=== PATIENT | female | born 1950 | race Caucasian/White ===

== ENCOUNTER 2017-08-20 15:54 | Emergency (ER) | payer MEDICARE, OTHER, SELFPAY ==
[2017-08-20 15:56] VITALS: BP 156/85; PULSE 93; RESP 18; TEMP 36.1; O2SAT 98; BMI 36.3
--- NOTE | 2017-08-20 16:55 | ED.DCSUM_ITS ---
- ER Visit Summary Date of Service: 08/20/17 Chief Complaint: Epistaxis History of Present Illness: The patient is a 66 F who presents with epistaxis. She does have a history of prior similar symptoms. She has been taking Aleve due to wrist and rib pain after a fall. She is not on any full anticoagulation. She does have a history of prior epistaxis requiring packing. 2 hours ago she began to have bleeding from the right side of her nose which she was unable to control. She is otherwise without any complaints. Physical Examination: Afebrile vitals are stable Moist mucous membranes Heart regular Lungs clear There is mild oozing in the right nare I do not see a clear focal source amenable to cauterization Test Results: Not indicated Emergency Department Course and Treatment: FloSeal was placed in the right nare and bleeding controlled. Patient was referred to Dr. Montanez for outpatient follow-up and the patient was discharged. Treatment Plan: [] Disposition: Discharge Impression: Epistaxis This note was generated with [employer] dictation software. It may contain incorrect words, spelling, and punctuation that were not noted in review of the chart prior to signing ED Disposition - Plan for ED Patient: Chief Complaint: Nosebleed Referrals: Curtis Avila MD [Primary Care Provider] -
== END 2017-08-20 17:29 | disposition home or self-care (01) ==
LOC: ED 16:37
PROVIDERS: Emergency Provider Emergency Medicine; Family Provider Family Medicine; PCP Family Medicine
DX: R04.0 Epistaxis (principal); E11.9 Type 2 diabetes mellitus without complications; I10 Essential (primary) hypertension; Z79.84 Long term (current) use of oral hypoglycemic drugs; Z79.899 Other long term (current) drug therapy
CPT/HCPCS: 30901; 99282

== ENCOUNTER 2017-08-21 06:50 | Emergency (ER) | payer MEDICARE, OTHER, SELFPAY ==
[2017-08-21 06:51] VITALS: BP 147/68; PULSE 75; RESP 17; TEMP 36.1; O2SAT 98; BMI 36.8
--- NOTE | 2017-08-21 07:21 | ED.VISSUMM ---
- ER Visit Summary Date of Service: 08/21/17 Chief Complaint: Nosebleed History of Present Illness: The patient is a 66 F presenting for evaluation secondary to nosebleed. Patient states that she was seen yesterday and had a gel put within her nose. She states that this stopped bleeding. Patient reports that she then had a sudden onset of bleeding again this morning about 5 in the morning. It is coming from her right nostril. Patient states that she has had some issues in the past with bleeding and did require cautery multiple multiple years ago of the left side. She is not on any sort of anticoagulants. She is not on oxygen. Review of systems otherwise negative. Physical Examination: Physical exam is unremarkable except for ENT exam. ENT exam shows some dried blood in the posterior oropharynx. There is evidence of friable tissue in the right sided nasal septum without any evidence of active bleeding. Test Results: None indicated Emergency Department Course and Treatment: Patient presented for evaluation secondary to epistaxis. Patient had only mild bleeding on presentation, but Afrin soaked gauze was placed in the patient's right nostril. This was then removed, and the nose was observed under a nasal speculum. There is friable tissue noted over the patient's nasal septum. Cautery was performed using silver nitrate. An anterior nasal packing was used, and was placed in the right nostril. Patient will be observed in the emergency department to ensure hemostasis, and will follow up with ENT Dr. Montanez as an outpatient. Disposition: Discharge Impression: 1. Right-sided epistaxis 2. Anterior nasal packing by ED physician 3. Chemical cautery of epistaxis by ED physician This note was generated with [employer] dictation software. It may contain incorrect words, spelling, and punctuation that were not noted in review of the chart prior to signing ED Disposition - Plan for ED Patient: Disposition: Home or Assisted Living Chief Complaint: Nosebleed Diagnosis: Epistaxis, recurrent Instructions: Nosebleed Prescriptions: Cephalexin [Keflex] 500 mg PO BID #10 cap Referrals: Dragan Montanez MD [STAFF PHYSICIAN] - 2 Days
[2017-08-21 08:04] VITALS: PULSE 69; RESP 17; O2SAT 96
== END 2017-08-21 08:05 | disposition home or self-care (01) ==
PROVIDERS: Emergency Provider Emergency Medicine; Family Provider Family Medicine; PCP Family Medicine
DX: R04.0 Epistaxis (principal); E11.9 Type 2 diabetes mellitus without complications; I10 Essential (primary) hypertension; Z79.84 Long term (current) use of oral hypoglycemic drugs; Z79.899 Other long term (current) drug therapy
CPT/HCPCS: 30901; 99283; A4216

== ENCOUNTER → 2017-08-22 12:22 | Outpatient (CLI) | payer MEDICARE, OTHER, SELFPAY ==
--- NOTE | 2017-08-22 12:28 | RAD_ITS ---
STUDY: X-RAY - RIGHT WRIST REASON FOR EXAM: Female, 66 years old. Fell 2 weeks ago TECHNIQUE: 3 view(s) of the wrist were obtained. COMPARISON: None. FINDINGS: Normal visualized distal radius and ulna. Normal radiocarpal articulation. Normal distal radioulnar articulation. Normal carpal bones. Normal carpal articulations. Normal carpometacarpal articulation of the thumb. Normal second through fifth carpometacarpal articulations. There is an indeterminate lucency at the base of the first metatarsal only visualized on the lateral image. The soft tissue structures are unremarkable. RAD/Wrist min 3 Views IMPRESSION: Indeterminate lucency at the base of the first metatarsal that is likely artifactual in nature, recommend additional dedicated images for further evaluation for cannot entirely exclude an underlying fracture. Electronically Signed: Roberta Levy MD at 12:51 EDT Tel , Service support ,
--- NOTE | 2017-08-22 12:28 | RAD_ITS ---
STUDY: X-RAY - RIGHT RADIUS AND ULNA REASON FOR EXAM: Female, 66 years old. Fell 2 weeks ago. TECHNIQUE: 2 view(s) of the forearm. COMPARISON: None. FINDINGS: There is no demonstrated soft tissue swelling. Normal visualized radius. Normal visualized ulna. RAD/Forearm 2 Views IMPRESSION: No acute osseous injury. Electronically Signed: Roberta Levy MD at 12:48 EDT Tel , Service support ,
--- NOTE | 2017-08-22 12:28 | RAD_ITS ---
STUDY: X-RAY - BILATERAL RIBS WITH CHEST REASON FOR EXAM: Female, 66 years old. Fall 2 weeks ago. Left-sided rib pain. TECHNIQUE - RIBS: 4 view(s) of the ribs. TECHNIQUE - CHEST: PA COMPARISON: None. FINDINGS - RIBS : Normal visualized ribs without a demonstrated fracture. FINDINGS - CHEST: The lungs are clear and expanded. There is no demonstrated pleural abnormality. Normal size heart. Normal mediastinum and florence. Normal visualized pulmonary arteries. Normal visualized aortic arch and descending thoracic aorta. Normal visualized thoracic spine. Normal visualized ribs, clavicles, and shoulders. There is no demonstrated abnormality of the visualized soft tissue structures of the upper abdomen. RAD/Ribs Bilat 3V No CXR IMPRESSION: RIBS: Normal x-ray examination of the bilateral ribs. CHEST: No acute cardiopulmonary process. Electronically Signed: Roberta Levy MD at 12:53 EDT Tel , Service support ,
== END ==
PROVIDERS: Family Provider Family Medicine; PCP Family Medicine; Visit Provider Family Medicine
DX: R07.81 Pleurodynia (principal); M25.531 Pain in right wrist
CPT/HCPCS: 71110; 73090; 73110

== ENCOUNTER → 2017-08-23 14:17 | Outpatient (CLI) | payer MEDICARE, OTHER, SELFPAY ==
--- NOTE | 2017-08-23 14:50 | RAD_ITS ---
STUDY: X-RAY - RIGHT HAND REASON FOR EXAM: Right hand pain after a fall. TECHNIQUE: 3 view(s) of the hand. COMPARISON: Right wrist radiographs 08/22/2017. FINDINGS: Normal radiocarpal articulation. Normal distal radioulnar joint. Normal visualized carpal bones. Normal carpal articulations Normal carpometacarpal articulation of the thumb. Normal second through fifth carpometacarpal joints. Normal metacarpi. Normal metacarpophalangeal joint of the thumb. Normal interphalangeal joint of the thumb. Normal proximal and distal phalanges of the thumb. Normal metacarpophalangeal joints of the second through fifth fingers. Normal proximal and distal interphalangeal joints of the second through fifth fingers. Normal phalanges of the second through fifth fingers. The soft tissue structures are unremarkable. RAD/Hand Min 3 Views IMPRESSION: Unremarkable x-ray examination of the right hand without demonstrated fracture. Electronically Signed: Erick Mead MD at 15:27 EDT Tel , Service support ,
== END ==
PROVIDERS: Family Provider Family Medicine; PCP Family Medicine; Visit Provider Family Medicine
DX: M25.531 Pain in right wrist (principal); R07.81 Pleurodynia
CPT/HCPCS: 73130

== ENCOUNTER → 2017-10-14 11:40 | Outpatient (CLI) | payer MEDICARE, OTHER, SELFPAY ==
[2017-10-14 13:59] LABS: AST(SGOT) 17 U/L (15-37); Alanine Aminotransfer ALT/SGPT 28 U/L (13-56); Albumin, Serum 3.9 g/dL (3.2-5.0); Alkaline Phosphatase 138 U/L (45-117); Anion Gap 11 (5-15); BUN 21 mg/dL (7-18); BUN/Creat Ratio 23.8 RATIO (10-20); Bilirubin, Direct 0.12 mg/dL (0.00-0.30); Calcium,Total 9.8 mg/dL (8.5-10.1); Chloride 104 mmol/L (98-107); Cholesterol 177 mg/dL (200); Creatinine, Serum 0.88 mg/dL (0.55-1.02); EST Glomerular Filtration Rate 68 mL/min (>60); Est Glom Filt Rate - Afr Amer 82 mL/min (>60); Globulin 4.3 g/dL (2.2-4.2); Glucose 151 mg/dL (74-106); High Density Lipoprotein 39 mg/dL; Potassium 4.2 mmol/L (3.5-5.1); Protein, Total 8.2 g/dL (6.4-8.2); Sodium Level 141 mmol/L (136-145); Triglycerides 217 mg/dL; Very Low Density Lipoprotein 43 mg/dL (5-40)
[2017-10-14 14:03] LABS: Hemoglobin A1c 7.2 % (4.2-6.3)
[2017-10-14 14:05] LABS: Vitamin D,25 Hydroxy 41.6 ng/mL (29.95-100.01)
[2017-10-14 14:12] LABS: Microalbumin,Random Urine 5.6 mg/L (NO RANGE EST.); Microalbumin:Creatinine Ratio 12.7 mg/g CRE (<30 mg/g CRE)
== END ==
PROVIDERS: Family Provider Family Medicine; PCP Family Medicine; Visit Provider Family Medicine
DX: E11.9 Type 2 diabetes mellitus without complications (principal); E55.9 Vitamin D deficiency, unspecified; Z79.4 Long term (current) use of insulin
CPT/HCPCS: 36415; 80048; 80061; 80076; 82043; 82306; 82570; 83036

== ENCOUNTER → 2018-04-21 10:57 | Outpatient (CLI) | payer MEDICARE, OTHER, SELFPAY ==
[2018-04-21 13:25] LABS: Anion Gap 11 (5-15); BUN 16 mg/dL (7-18); BUN/Creat Ratio 18.7 RATIO (10-20); Calcium,Total 9.3 mg/dL (8.5-10.1); Chloride 107 mmol/L (98-107); Cholesterol 150 mg/dL (200); Creatinine, Serum 0.86 mg/dL (0.55-1.02); EST Glomerular Filtration Rate 70 mL/min (>60); Est Glom Filt Rate - Afr Amer 85 mL/min (>60); Glucose 193 mg/dL (74-106); High Density Lipoprotein 38 mg/dL; Potassium 4.2 mmol/L (3.5-5.1); Sodium Level 141 mmol/L (136-145); Triglycerides 201 mg/dL; Very Low Density Lipoprotein 40 mg/dL (5-40)
== END ==
PROVIDERS: Family Provider Family Medicine; PCP Family Medicine; Visit Provider Family Medicine
DX: E11.9 Type 2 diabetes mellitus without complications (principal)
CPT/HCPCS: 36415; 80048; 80061

== ENCOUNTER → 2018-06-27 | Outpatient (CLI) | payer MEDICARE, OTHER, SELFPAY ==
--- NOTE | 2018-06-27 12:11 | RAD_ITS ---
STUDY: X-RAY - UNILATERAL RIBS ( LEFT ) WITH CHEST REASON FOR EXAM: Female, 67 years old. Recent fall. Left upper quadrant pain. Left rib pain. TECHNIQUE - RIBS: 4 view(s) of the ribs. TECHNIQUE - CHEST: Single PA view of the chest. COMPARISON: Bilateral RIBS, August 22, 2017. FINDINGS - RIBS: Normal visualized ribs without a demonstrated fracture. FINDINGS - CHEST: The lungs are clear and expanded. There is no demonstrated pleural abnormality. Normal size heart. Normal mediastinum and florence. Normal visualized pulmonary arteries. There is mild tortuosity of the thoracic aorta. There are diffuse degenerative changes of the visualized thoracic spine. There is degenerative osteoarthritis of the bilateral shoulders. There is no demonstrated abnormality of the visualized soft tissue structures of the upper abdomen. RAD/Ribs Uni Min 3V w/PA Chest IMPRESSION: RIBS: Normal x-ray examination of the ribs. CHEST: No acute cardiopulmonary disease. Electronically Signed: Niles Flanagan DO at 20:51 EDT Tel [phone], Service support ,
== END | disposition home or self-care (01) ==
LOC: MTRAD 12:08
PROVIDERS: Family Provider Family Medicine; PCP Family Medicine; Referring Provider Family Medicine; Visit Provider Family Medicine
DX: R10.12 Left upper quadrant pain (principal)
CPT/HCPCS: 71101

== ENCOUNTER → 2018-10-16 09:57 | Outpatient (CLI) | payer MEDICARE, OTHER, SELFPAY ==
[2018-10-16 13:00] LABS: Hemoglobin A1c 7.8 % (4.2-6.3)
[2018-10-16 13:01] LABS: Vitamin D,25 Hydroxy 34.3 ng/mL (29.95-100.01)
[2018-10-16 13:06] LABS: Anion Gap 14 (5-15); BUN 17 mg/dL (7-18); BUN/Creat Ratio 17.1 RATIO (10-20); Calcium,Total 9.4 mg/dL (8.5-10.1); Chloride 105 mmol/L (98-107); Cholesterol 160 mg/dL (200); EST Glomerular Filtration Rate 59 mL/min (>60); Est Glom Filt Rate - Afr Amer 71 mL/min (>60); Glucose 182 mg/dL (74-106); High Density Lipoprotein 37 mg/dL; Potassium 4.3 mmol/L (3.5-5.1); Sodium Level 139 mmol/L (136-145); Triglycerides 235 mg/dL; Very Low Density Lipoprotein 47 mg/dL (5-40)
[2018-10-16 13:16] LABS: Microalbumin,Random Urine 11.2 mg/L (NO RANGE EST.); Microalbumin:Creatinine Ratio 22.1 mg/g CRE (<30 mg/g CRE)
== END ==
PROVIDERS: Family Provider Family Medicine; PCP Family Medicine; Referring Provider Family Medicine; Visit Provider Family Medicine
DX: E11.9 Type 2 diabetes mellitus without complications (principal); E55.9 Vitamin D deficiency, unspecified; Z79.4 Long term (current) use of insulin
CPT/HCPCS: 36415; 80048; 80061; 82043; 82306; 82570; 83036

== ENCOUNTER → 2018-11-18 12:10 | Outpatient (CLI) | payer MEDICARE, OTHER, SELFPAY ==
--- NOTE | 2018-11-18 12:19 | BD_ITS ---
STUDY: DUAL ENERGY X-RAY ABSORPTIOMETRY / DXA REASON FOR EXAM: Female, 68 years old. The patient is postmenopausal. Loss of height. TECHNIQUE: Bone Mineral Density (BMD) measurements of lumbar spine and bilateral hips were obtained. COMPARISON: Comparison is made with prior study dated August 26, 2014. FINDINGS: Lumbar Spine (L1-L4): g/cm2 (0.978) / T-score (-1.7) / Z-score (-0.1) Findings are suggestive of osteopenia with a moderate fracture risk. Increased thoracic kyphosis. Left Femur Total: g/cm2 (0.863) / T-score (-1.1) / Z-score (0.2) Left Femoral Neck: g/cm2 (0.683) / T-score (-2.6) / Z-score (-1.0) Right Femur Total: g/cm2 (0.73) / T-score (-1.8) / Z-score (-0.4) Right Femoral Neck: g/cm2 (0.717) / T-score (-2.3) / Z-score (-0.7) The T-Scores on the most recent prior examination were: Lumbar Spine (L1-L4): There has been worsening of bone density since the previous examination. Left Femur Total: which represents a worsening of 4.1%. Right Femur Total: which represents a worsening of 6.1%. BD/Dexa Bone Density Study IMPRESSION: The patient is considered osteoporotic as outlined below according to World Luke Organization (WHO) criteria with a high fracture risk. There has been worsening of bone density since the previous examination. Reference Information: The T-score is the number of standard deviations above or below the standard which is normal for young adults at their peak bone mineral density. The World Health Organization (WHO) interprets the T-scores as follows: Above -1 Normal bone density Between -1 and -2.5 Osteopenia Equal to / or below -2.5 Osteoporosis As a practical clinical guideline, osteopenia may be graded as follows: Mild -1 through -1.5 Moderate -1.6 through -2.0 Severe -2.1 through -2.4 The Z-score is the number of standard deviations above or below age-matched controls. A Z-score of less than -1.5 would be considered abnormal. References: 1. NIH Osteoporosis and Related Bone Diseases http://www.osteo.org 2. International Society for Clinical Densitometry http://www.iscd.org 3. National Osteoporosis Foundation http://www.nof.org Electronically Signed: Isaac Mcintyre, at 13:40 EDT , Service support ,
--- NOTE | 2018-11-18 12:28 | BI_ITS ---
MAMMOGRAPHY - BILATERAL SCREENING REASON FOR EXAM: Female, 68 years old. Routine annual screening examination. PERTINENT HISTORY: Non-contributory. TECHNIQUE: Digital bilateral breast chelsey (3D mammographic acquisition) in the CC and MLO projections. 2-D mediolateral oblique (MLO) and craniocaudad (CC) views of both breasts were obtained. CAD: Full Field Digital Mammography with Computer Added Detection was performed. COMPARISON: Comparison is made with prior study dated August 28, 2016 and August 26, 2014. FINDINGS: Breast Composition: The breasts are almost entirely fatty. There are no dominant masses or suspicious calcifications. Stable small bilateral benign appearing axillary lymph nodes. No other significant abnormalities are identified. There has been no significant change since the prior study. BI/SCREEN MAMM (CAD) W/CHELSEY BILAT IMPRESSION: Stable bilateral screening mammogram. Yearly follow-up mammogram recommended. (A) ASSESSMENT CATEGORY: BIRADS Category 2: Benign. A letter regarding these results will be sent to the patient by the facility within 30 days. Approximately 10% of breast cancers are not detected by mammography. A normal mammogram should not delay biopsy of a clinically suspicious abnormality. [id number] Electronically Signed: Isaac Mcintyre, at 15:17 EDT , Service support ,
== END ==
PROVIDERS: Family Provider Family Medicine; PCP Family Medicine; Referring Provider Family Medicine; Visit Provider Family Medicine
DX: Z12.31 Encounter for screening mammogram for malignant neoplasm of breast (principal); M81.0 Age-related osteoporosis without current pathological fracture; Z78.0 Asymptomatic menopausal state
CPT/HCPCS: 77063; 77067; 77080

== ENCOUNTER → 2019-10-15 10:02 | Outpatient (CLI) | payer MEDICARE, OTHER, SELFPAY ==
[2019-10-15 13:13] LABS: Anion Gap 9 (5-15); BUN 19 mg/dL (7-18); BUN/Creat Ratio 20.8 RATIO (10-20); Calcium,Total 9.5 mg/dL (8.5-10.1); Chloride 106 mmol/L (98-107); Cholesterol 171 mg/dL (200); Creatinine, Serum 0.92 mg/dL (0.55-1.02); EST Glomerular Filtration Rate 65 mL/min (>60); Est Glom Filt Rate - Afr Amer 78 mL/min (>60); Glucose 180 mg/dL (74-106); High Density Lipoprotein 35 mg/dL; Potassium 4.4 mmol/L (3.5-5.1); Sodium Level 138 mmol/L (136-145); Triglycerides 167 mg/dL; Very Low Density Lipoprotein 33 mg/dL (5-40)
== END ==
PROVIDERS: PCP Family Medicine; Referring Provider Family Medicine; Visit Provider Family Medicine
DX: E11.9 Type 2 diabetes mellitus without complications (principal); M81.0 Age-related osteoporosis without current pathological fracture
CPT/HCPCS: 36415; 80048; 80061; 82306

== ENCOUNTER 2020-01-03 23:31 | Emergency (ER) | payer MEDICARE, OTHER, SELFPAY ==
[2020-01-03 23:31] VITALS: BP 155/87; RESP 16; TEMP 36.2; BMI 37.6
[2020-01-04 00:14] VITALS: O2SAT 95
--- NOTE | 2020-01-04 00:24 | ED.DCSUM_ITS ---
- ER Visit Summary Date of Service: 01/04/20 Chief Complaint: Epistaxis History of Present Illness: The patient is a 69 F who presents with epistaxis that began tonight. Patient states she can feel pressure in her left maxillary sinus over the last 4 days which is typical for her prior to developing a nose bleed. Patient describes as a pressure. Patient states the bleeding is mainly coming from the left nares. Patient states nothing makes it better or worse. Patient states she has had similar episodes in the past. Patient states she prefers to follow-up with Dr. Rebollar. Physical Examination: Vital signs are stable. Patient is afebrile. Patient is in no acute distress. Oral mucosa is pink and moist. There is bloody drainage in the oropharynx. Nasal mucosa is pink and moist. There is bleeding from the left nares. Neck is supple. Trachea is midline. There is no JVD. Heart was regular rate and rhythm. Lungs are clear and equal bilaterally. Abdomen is soft nontender. Cranial nerves II through XII are intact. There are no focal motor or sensory deficits. Test Results: CBC, basic metabolic profile, PT with INR and PTT were obtained were all within normal limits. Emergency Department Course and Treatment: 4% lidocaine and Afrin was mixed and cotton balls were soaked with this. These were placed in the nares. Bleeding improved with this. I attempted to place a 5.5 cm anterior rapid Rhino however I was only able to pass this part way in. A small Merocel sponge was then applied to the left anterior nares. Patient was feeling better after this. There is no further episodes of bleeding noted. Patient was instructed to maintain this until she can follow-up with Dr. Melchor. Patient understood and was agreeable with the plan. All questions were answered. Disposition: Discharge home Impression: 1. Epistaxis This note was generated with [employer] dictation software. It may contain incorrect words, spelling, and punctuation that were not noted in review of the chart prior to signing ED Disposition - Plan for ED Patient: Disposition: Home or Assisted Living Diagnosis: Epistaxis Instructions: Nosebleed Referrals: Curtis Avila MD [Primary Care Provider] - 5-7 Days Agustin Rebollar MD [STAFF PHYSICIAN] - 3-5 Days
[2020-01-04 00:47] LABS: Absolute Lymphocyte Count 2.89 X10^3/uL (0.83-4.51); Absolute Neutrophil Count 6.4 X10^3/uL (2.0-7.7); Basophil# 0.08 X10^3/uL; Basophil% 0.8 % (0-1); Eosinophil# 0.09 X10^3/uL; Eosinophils% 0.9 % (0-5); Hematocrit 39.7 % (37-47); Hemoglobin 12.4 g/dL (12.0-15.0); Lymphocyte # 2.89 X10^3/ul (4.0); Lymphocyte % 28.7 % (19-41); Mean Corp Hgb Conc 31.2 g/dL (32-36); Mean Corpuscular Hgb 27.5 pg (27.0-32.0); Mean Platelet Vol. 11.3 fl (6.2-12.0); Monocyte# 0.61 X10^3/uL; Monocyte% 6.1 % (0-10); NRBC Flagged by Analyzer 0 % (0-5); Neutrophil # 6.37 X10^3/uL (2.7-7.7); Neutrophil % 63.1 % (47-70); Platelet Count 274 K/mm3 (150-450); RBC Distribution Width CV 15.1 % (11.6-14.6); RBC Distribution Width SD 48.2 fl (35.1-43.9); Red Blood Count 4.51 M/mm3 (4.2-5.4); White Blood Count 10.1 K/mm3 (4.4-11.0)
[2020-01-04 00:56] LABS: Prothrombin Time (Protime)PT. 12.6 SECONDS (11.7-14.9)
[2020-01-04 01:00] LABS: Anion Gap 6 (5-15); BUN 21 mg/dL (7-18); BUN/Creat Ratio 18.1 RATIO (10-20); Calcium,Total 9.6 mg/dL (8.5-10.1); Chloride 107 mmol/L (98-107); Creatinine, Serum 1.16 mg/dL (0.55-1.02); EST Glomerular Filtration Rate 49 mL/min (>60); Est Glom Filt Rate - Afr Amer 60 mL/min (>60); Glucose 212 mg/dL (74-106); Potassium 4.3 mmol/L (3.5-5.1); Sodium Level 138 mmol/L (136-145)
[2020-01-04 01:03] LABS: Partial Thromboplast Time 25.7 Seconds (24.1-36.2)
[2020-01-04] MEDS: Oxymetazoline 0.05% 1 SPRAY SPRAY.BTL 2 SPRAY NASAL (03:12)
[2020-01-04] MEDS: Lidocaine 4% 50 ML Bottle TOPICAL (03:13)
[2020-01-04 03:20] VITALS: BP 145/62; PULSE 89; RESP 18; O2SAT 97
== END 2020-01-04 03:20 | disposition home or self-care (01) ==
PROVIDERS: Emergency Provider Emergency Medicine; PCP Family Medicine
DX: R04.0 Epistaxis (principal); E11.9 Type 2 diabetes mellitus without complications; E66.9 Obesity, unspecified; Z79.84 Long term (current) use of oral hypoglycemic drugs; Z79.899 Other long term (current) drug therapy
CPT/HCPCS: 30901; 80048; 85025; 85610; 85730; 94760; 99282; A4216

== ENCOUNTER → 2020-07-13 10:40 | Outpatient (CLI) | payer MEDICARE, OTHER, SELFPAY ==
[2020-07-13 12:52] LABS: ALB/GLOB Ratio 0.9 RATIO (0.9-2.4); AST(SGOT) 17 U/L (15-37); Alanine Aminotransfer ALT/SGPT 37 U/L (13-56); Albumin, Serum 3.8 g/dL (3.2-5.0); Alkaline Phosphatase 157 U/L (45-117); Anion Gap 6 (5-15); BUN 24 mg/dL (7-18); BUN/Creat Ratio 26.8 RATIO (10-20); Calcium,Total 9.7 mg/dL (8.5-10.1); Chloride 105 mmol/L (98-107); Cholesterol 161 mg/dL (200); EST Glomerular Filtration Rate 66 mL/min (>60); Est Glom Filt Rate - Afr Amer 80 mL/min (>60); Globulin 4.1 g/dL (2.2-4.2); Glucose 238 mg/dL (74-106); High Density Lipoprotein 39 mg/dL; Potassium 4.3 mmol/L (3.5-5.1); Protein, Total 7.9 g/dL (6.4-8.2); Sodium Level 136 mmol/L (136-145); Triglycerides 162 mg/dL; Very Low Density Lipoprotein 32 mg/dL (5-40)
== END ==
PROVIDERS: PCP Family Medicine; Referring Provider Family Medicine; Visit Provider Family Medicine
DX: I10 Essential (primary) hypertension (principal)
CPT/HCPCS: 36415; 80053; 80061

== ENCOUNTER → 2021-02-06 10:54 | Outpatient (CLI) | payer MEDICARE, OTHER, SELFPAY ==
[2021-02-06 12:40] LABS: Anion Gap 8 (5-15); BUN 23 mg/dL (7-18); BUN/Creat Ratio 23.5 RATIO (10-20); Calcium,Total 9.6 mg/dL (8.5-10.1); Chloride 106 mmol/L (98-107); Cholesterol 171 mg/dL (200); Creatinine, Serum 0.98 mg/dL (0.55-1.02); EST Glomerular Filtration Rate 60 mL/min (>60); Est Glom Filt Rate - Afr Amer 72 mL/min (>60); Glucose 205 mg/dL (74-106); High Density Lipoprotein 37 mg/dL; Potassium 4.2 mmol/L (3.5-5.1); Sodium Level 138 mmol/L (136-145); Triglycerides 184 mg/dL; Very Low Density Lipoprotein 37 mg/dL (5-40)
== END ==
PROVIDERS: PCP Family Medicine; Visit Provider Family Medicine
DX: E11.9 Type 2 diabetes mellitus without complications (principal); Z79.4 Long term (current) use of insulin
CPT/HCPCS: 36415; 80048; 80061

== ENCOUNTER 2021-05-01 17:27 | Outpatient (CLI) | payer MEDICARE, OTHER, SELFPAY | END 2021-05-01 23:59 | disposition home or self-care (01) | PROVIDERS: PCP Family Medicine; Visit Provider Family Medicine | DX: Z20.822 Contact with and (suspected) exposure to COVID-19 (principal) | CPT/HCPCS: 87635; U0003; U0005 ==

== ENCOUNTER 2021-07-21 21:47 | Emergency (ER) | payer MEDICARE, OTHER, SELFPAY ==
[2021-07-21 21:47] VITALS: BP 129/83; PULSE 89; RESP 15; TEMP 36; O2SAT 97; BMI 32.3
--- NOTE | 2021-07-21 22:28 | EDS_ITS ---
HPI History of Present Illness Chief Complaint: Nosebleed Narrative Narrative: 70-year-old female presenting with nosebleed. She states it started on the right side. When she plugs her nose it does feel it is going down the back of her throat. Patient states she does get nosebleeds from time to time. She denies digital trauma. She is not on any anticoagulation. Patient states he sees Dr. Rebollar outpatient. Patient states has not had a nosebleed in a year. Patient states he was given Afrin prior to arrival and she is still trickling. PFSH PFSH Home Medications amitriptyline 10 mg PO DAILY 08/20/17 [History Last Taken Unknown] dapagliflozin [Farxiga] 5 mg PO DAILY 08/20/17 [History Last Taken Unknown] diltiazem HCl 1 cap PO QHS 08/20/17 [History Last Taken Unknown] gemfibrozil 600 mg PO BID 08/20/17 [History Last Taken Unknown] glipizide 5 mg PO QHS 08/20/17 [History Last Taken Unknown] metformin 1,000 mg PO BID 08/20/17 [History Last Taken Unknown] ramipril 5 mg PO DAILY 08/20/17 [History Last Taken Unknown] simvastatin 10 mg PO QHS 08/20/17 [History Last Taken Unknown] Allergy/AdvReac Type Severity Reaction Status Date / Time Penicillins [PCN] Allergy Hives Verified 08/21/17 06:54 Social History Smoking Status: Never smoker ROS ROS ED Constitutional Constitutional ED: Denies fever(s) or sweats Eyes Eyes: Denies blurry vision or diplopia ENT ENT ED: Reports other Details: Epistaxis Cardiovascular Cardiovascular: Denies chest pain or palpitations Respiratory/Chest Respiratory/Chest: Denies cough or dyspnea Gastrointestinal Gastrointestinal: Denies abdominal pain, nausea or vomiting Genitourinary Genitourinary ED: Denies dysuria or hematuria Musculoskeletal Musculoskeletal: Denies arthralgias or myalgias Integumentary Denies rash Neurologic Neurologic: Denies headache(s) or weakness EXAM Physical Exam Const Vital Signs: 07/21/21 21:47 07/22/21 01:35 Temperature 96.8 F L Temperature Source Temporal Pulse Rate 89 68 Respiratory Rate 15 16 Blood Pressure 129/83 H 126/76 H Blood Pressure Mean 98 Pulse Ox 97 98 Oxygen Delivery Method Room Air Positive well nourished General Appearance ED: NAD HEENT Reports moist mucous membranes Nose: external nose normal, septum normal and epistaxis left Mouth ED: Yes oral and palatal mucosa normal, Yes lips normal, Yes tongue normal and Yes salivary gland normal Mouth: oral and palatal mucosa normal, lips normal, tongue normal and salivary g land normal Eyes PERRL and EOMs intact bilaterally Neck no lymphadenopathy and supple Resp normal respiratory effort and clear to auscultation bilaterally Cardio regular rate and regular rhythm GI normal to inspection, nondistended, normoactive bowel sounds Extremity normal to inspection Neuro oriented x3 and no sensory deficits noted Sensorium / Orientation: alert Motor Exam: strength 5/5 throughout Psych mental status grossly normal Skin no rashes or lesions noted MDM MDM MDM Narrative Medical decision making narrative: Patient presenting with epistaxis. She states its mostly from the left nare. I had the patient blow her nose and I placed a Afrin-soaked cottonball within the nare. This was clamped. On recheck she was still having a little bit of trickling. I discussed packing versus trying to retreat her nose to see if she would stop bleeding on her own. I used Mathurs mix the second time and inserted a cotton ball into the left nare similarly. At recheck at 15 minutes her bleeding had resolved. At this point I feel the patient does not need packing and she is given follow-up with Dr. Rebollar her ENT. Impression: 1. Epistaxis Discharge Plan Triage Chief Complaint: Nosebleed ED Provider: Jameel Narayanan Dx/Rx/DC Orders Instructions: ED Epistaxis (Adult) Prescriptions: No Action diltiazem HCl 240 MG capsule,ext.rel 24h degradable 1 cap PO QHS RF: 0 simvastatin 10 MG tablet 10 mg PO QHS RF: 0 amitriptyline 10 MG tablet 10 mg PO DAILY RF: 0 gemfibrozil 600 MG tablet 600 mg PO BID RF: 0 metformin 1,000 MG tablet 1,000 mg PO BID RF: 0 ramipril 5 capsule 5 mg PO DAILY RF: 0 glipizide 5 tablet 5 mg PO QHS RF: 0 Farxiga 5 MG tablet 5 mg PO DAILY RF: 0 Primary Care Provider: Curtis Avila Referrals: Edi Rebollar MD [STAFF PHYSICIAN] - As soon as possible Curtis Avila MD [Primary Care Provider] - Disposition Disposition: Home, Self Care Discharge Date/Time: 07/22/21 01:36
[2021-07-21] MEDS: Oxymetazoline 0.05% 1 SPRAY SPRAY.BTL 2 SPRAY NASAL (22:34)
[2021-07-22] MEDS: Mixture 30 ML Bottle TOPICAL (01:15)
[2021-07-22 01:35] VITALS: BP 126/76; PULSE 68; RESP 16; O2SAT 98
== END 2021-07-22 01:36 | disposition home or self-care (01) ==
PROVIDERS: Emergency Provider Student in an Organized Health Care Education/Training Program; PCP Family Medicine; Visit Provider Student in an Organized Health Care Education/Training Program
DX: R04.0 Epistaxis (principal); Z79.84 Long term (current) use of oral hypoglycemic drugs; Z79.899 Other long term (current) drug therapy
CPT/HCPCS: 99284

== ENCOUNTER → 2021-08-11 | Outpatient (CLI) | payer MEDICARE, OTHER, SELFPAY ==
[2021-08-11 12:33] LABS: AST(SGOT) 15 U/L (15-37); Alanine Aminotransfer ALT/SGPT 20 U/L (13-56); Albumin, Serum 3.8 g/dL (3.2-5.0); Alkaline Phosphatase 133 U/L (45-117); Anion Gap 9 (5-15); BUN 21 mg/dL (7-18); BUN/Creat Ratio 23.3 RATIO (10-20); Calcium,Total 9.5 mg/dL (8.5-10.1); Chloride 107 mmol/L (98-107); Cholesterol 166 mg/dL (200); EST Glomerular Filtration Rate 65 mL/min (>60); Est Glom Filt Rate - Afr Amer 79 mL/min (>60); Globulin 3.8 g/dL (2.2-4.2); Glucose 160 mg/dL (74-106); High Density Lipoprotein 41 mg/dL; Potassium 4.2 mmol/L (3.5-5.1); Protein, Total 7.6 g/dL (6.4-8.2); Sodium Level 137 mmol/L (136-145); Triglycerides 159 mg/dL; Very Low Density Lipoprotein 32 mg/dL (5-40)
[2021-08-11 13:33] LABS: Hemoglobin A1c 6.7 % (3.8-5.6)
== END | disposition home or self-care (01) ==
LOC: MFPLAB 10:54
PROVIDERS: PCP Family Medicine; Visit Provider Family Medicine
DX: E78.00 Pure hypercholesterolemia, unspecified (principal); E11.9 Type 2 diabetes mellitus without complications
CPT/HCPCS: 36415; 80053; 80061; 83036

== ENCOUNTER → 2022-02-27 | Outpatient (CLI) | payer MEDICARE, OTHER, SELFPAY ==
[2022-02-27 12:52] LABS: Anion Gap 9 (5-15); BUN 17 mg/dL (7-18); BUN/Creat Ratio 20.3 RATIO (10-20); Calcium,Total 9.4 mg/dL (8.5-10.1); Chloride 107 mmol/L (98-107); Cholesterol 174 mg/dL (200); Creatinine, Serum 0.84 mg/dL (0.55-1.02); EST Glomerular Filtration Rate 71 mL/min (>60); Est Glom Filt Rate - Afr Amer 86 mL/min (>60); Glucose 154 mg/dL (74-106); High Density Lipoprotein 38 mg/dL; Potassium 4.3 mmol/L (3.5-5.1); Sodium Level 141 mmol/L (136-145); Triglycerides 217 mg/dL; Very Low Density Lipoprotein 43 mg/dL (5-40)
[2022-02-27 13:10] LABS: Microalbumin:Creatinine Ratio 19.9 mg/g CRE (<30 mg/g CRE)
== END | disposition home or self-care (01) ==
LOC: MFPLAB 09:43
PROVIDERS: PCP Family Medicine; Referring Provider Family Medicine; Visit Provider Family Medicine
DX: E11.9 Type 2 diabetes mellitus without complications (principal); Z79.4 Long term (current) use of insulin
CPT/HCPCS: 36415; 80048; 80061; 82043; 82570

== ENCOUNTER → 2022-11-21 | Outpatient (CLI) | payer MEDICARE, OTHER, SELFPAY ==
[2022-11-21 13:10] LABS: Anion Gap 7 (5-15); BUN 20 mg/dL (7-18); BUN/Creat Ratio 22.8 RATIO (10-20); Calcium,Total 9.6 mg/dL (8.5-10.1); Chloride 107 mmol/L (98-107); Cholesterol 169 mg/dL (200); Creatinine, Serum 0.88 mg/dL (0.55-1.02); EST Glomerular Filtration Rate 68 mL/min (>60); Est Glom Filt Rate - Afr Amer 82 mL/min (>60); Glucose 129 mg/dL (74-106); High Density Lipoprotein 40 mg/dL; Potassium 4.3 mmol/L (3.5-5.1); Sodium Level 140 mmol/L (136-145); Triglycerides 169 mg/dL; Very Low Density Lipoprotein 34 mg/dL (5-40)
[2022-11-21 13:30] LABS: Microalbumin,Random Urine 7.1 mg/L (NO RANGE EST.); Microalbumin:Creatinine Ratio 13.4 mg/g CRE (<30 mg/g CRE)
== END | disposition home or self-care (01) ==
LOC: MFPLAB 10:27
PROVIDERS: PCP Family Medicine; Visit Provider Family Medicine
DX: E11.9 Type 2 diabetes mellitus without complications (principal)
CPT/HCPCS: 36415; 80048; 80061; 82043; 82570

== ENCOUNTER 2022-12-08 03:13 | Emergency (ER) | payer MEDICARE, OTHER, SELFPAY ==
[2022-12-08 03:17] VITALS: BP 142/70; PULSE 85; RESP 16; TEMP 36.7; O2SAT 99
[2022-12-08 03:21] VITALS: BP 142/70; PULSE 85; RESP 16; TEMP 36.7; O2SAT 98
--- NOTE | 2022-12-08 03:28 | EX.ED.DYSGE1 ---
HPI History of Present Illness Chief Complaint: Other, Pain/Inj Informant: patient Narrative Narrative: Presents by EMS for increasing swelling upper lip. Woke up use restroom at 2 AM less than 90 minutes ago, she felt sensation looked in the mirror is puffy on the left side. Since then progressed over the top. States puffiness in cheek and nose. No lip or tongue swelling no dyspnea no scratchy throat. She ate tomato for dinner last night, she is eating tomatoes all her life. Denies any urticarial lesions. Denies history of similar in the past. From medication she is on ramipril for blood pressure and she states she has been on this for years. Prior similar symptoms: No PFSH PFSH Home Medications amitriptyline 10 mg tablet 10 mg PO DAILY 08/20/17 [History Last Taken Unknown] diltiazem HCl 240 mg capsule,extended release 24 hr, controlled 1 cap PO QHS 08/20/17 [History Last Taken Unknown] gemfibrozil 600 mg tablet 600 mg PO BID 08/20/17 [History Last Taken Unknown] glipizide 5 mg tablet 5 mg PO QHS 08/20/17 [History Last Taken Unknown] metformin 1,000 mg tablet 1,000 mg PO BID 08/20/17 [History Last Taken Unknown] simvastatin 10 mg tablet 10 mg PO QHS 08/20/17 [History Last Taken Unknown] calcium carbonate 600 mg-vitamin D3 5 mcg (200 unit) capsule (Calcium 600 + D(3)) 1 cap PO DAILY 12/08/22 [History Last Taken Unknown] empagliflozin 25 mg tablet (Jardiance) 25 mg PO DAILY 12/08/22 [History Last Taken Unknown] cvmukktl-bnnd-annk 8 mg-folic 400 mcg-K 50 mcg-lutein 300 mcg tablet (Multivitamin Women 50 Plus) 1 tab PO DAILY 12/08/22 [History Last Taken Unknown] Allergy/AdvReac Type Severity Reaction Status Date / Time ramipril Allergy Severe Angioedema Verified 12/08/22 05:06 Penicillins [PCN] Allergy Hives Verified 12/08/22 03:15 Social History Smoking Status: Never smoker ROS ROS ED Constitutional Constitutional ED: Denies chills, fever(s) or sweats Eyes Eyes: Denies change in vision ENT ENT ED: Reports other Details: Lip swelling ; Denies dysphagia or sore throat Cardiovascular Cardiovascular: Denies chest pain, leg edema, palpitations or racing heartbeat Respiratory/Chest Respiratory/Chest: Denies cough, dyspnea or dyspnea on exertion Gastrointestinal Gastrointestinal: Denies abdominal pain, diarrhea, nausea or vomiting Genitourinary Genitourinary ED: Denies dysuria, hematuria or urinary frequency Musculoskeletal Musculoskeletal: Denies back pain, extremity pain or neck pain Integumentary Denies rash or wounds Neurologic Neurologic: Denies headache(s), paresthesias or weakness EXAM Physical Exam Const Vital Signs: 12/08/22 03:16 12/08/22 03:17 12/08/22 03:21 Temperature 98.0 F 98.0 F Temperature Source Oral Oral Pulse Rate 85 85 Respiratory Rate 16 16 Respiratory Pattern Normal Blood Pressure 142/70 H 142/70 H Blood Pressure Mean 94 94 Pulse Ox 99 98 Oxygen Delivery Method Room Air Room Air Positive well nourished and well developed General Appearance ED: well developed and NAD HEENT Reports moist mucous membranes HEENT Narrative: Swelling left upper lip across just over midline. Slight swelling maxillary left side. No tongue swelling airway patent. normocephalic and atraumatic Eyes PERRL, EOMs intact bilaterally and conjunctivae normal General Eye ED: Yes normal appearance of both eyes Neck no lymphadenopathy and supple General: Negative for tenderness Chest Wall Chest: Negative for tenderness Resp normal respiratory effort and normal air movement Effort and Inspection: symmetric chest movement; Negative for respiratory distress Cardio regular rate, regular rhythm and no murmurs Peripheral Pulses: pulses 2+ throughout GI normal to inspection, nondistended, normoactive bowel sounds and non-tender Palpation: Negative for guarding or rebound tenderness present Back/Spine no CVA tenderness and no thoracic nor lumbar tenderness Extremity normal to inspection General Extremety ED: Negative for edema or tenderness General Extremity: Negative for edema Neuro oriented x3 and no sensory deficits noted Sensorium / Orientation: awake and alert Skin no rashes or lesions noted and no wounds MDM MDM MDM Narrative Medical decision making narrative: Interventions / MDM: Differential diagnosis: Angioedema Diagnosis considered but do not suspect: N/A My EKG interpretation: N/A Imaging independently reviewed and interpreted by myself: N/A External documents reviewed: N/A Test considered but not ordered:N/A ED course: Patient presenting with angioedema started at 2 AM progressing, no tongue involvement no current dyspnea. She is on BISI inhibitor. IV established we will try allergy medicine of steroids Benadryl and Pepcid. We will closely monitor. 0350: Medications were being given, on reevaluation slight progression more towards the right. There is no tongue involvement. 0400: Allergy meds were all given, reevaluation for progression towards the right. No tongue involvement. IV TXA ordered. 0438: TXA detention infused, patient starting to feel some improvement. 0500: Objectively swelling continuing to improve at this time. 0800: Multiple reevaluations swelling upper lip resolved. Patient discharged outpatient follow-up with return precautions. All questions were answered. Re-evaluation: stable Disposition discussed with patient/family/significant other: Patient Case discussed with consulting clinician: N/A This note was generated with [employer] dictation software. It may contain incorrect words, spelling, and punctuation that were not noted in checking the note before signing. 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), History of hypertension, History of diabetes mellitus Instructions: ED Angioedema Prescriptions: Discontinued ramipril 5 capsule 5 mg PO DAILY Patient Comments: No Action diltiazem HCl 240 MG capsule,ext.rel 24h degradable 1 cap PO QHS Patient Comments: TAKE ONE CAPSULE BY MOUTH DAILY simvastatin 10 MG tablet 10 mg PO QHS Patient Comments: TAKE ONE TABLET BY MOUTH DAILY amitriptyline 10 MG tablet 10 mg PO DAILY Patient Comments: Take 1 tablet by mouth daily gemfibrozil 600 MG tablet 600 mg PO BID Patient Comments: TAKE ONE TABLET BY MOUTH TWICE DAILY metformin 1,000 MG tablet 1,000 mg PO BID Patient Comments: TAKE 1 TABLET BY MOUTH TWICE DAILY glipizide 5 tablet 5 mg PO QHS Patient Comments: Jardiance 25 mg tablet 25 mg PO DAILY Patient Comments: take 1 tablet by mouth once daily Multivitamin Women 50 Plus 8 mg iron-400 mcg-50 mcg tablet 1 tab PO DAILY Calcium 600 + D(3) 600 mg-5 mcg (200 unit) capsule 1 cap PO DAILY Primary Care Provider: Curtis Avila Referrals: Curtis Avila MD [Primary Care Provider] - Activity Restrictions/Additional Instructions: stop your ramipril. Status post TXA in the emergency department. No improvement with allergy medications. Follow-up with your doctor. Return if worsening or recurrent symptoms. Disposition Disposition: Home, Self Care
[2022-12-08] MEDS: DiphenhydrAMINE 50 MG/ML Syringe 25 MG IV (03:42)
[2022-12-08] MEDS: MethylPREDNISolone 125 MG/2 ML Vial IV (03:42)
[2022-12-08] MEDS: Famotidine 200 MG/20 ML MDV 20 MG in 0.9% Normal Saline (Pres. free 8 ML 300 MG IV (03:45)
[2022-12-08] MEDS: TRANEXAMIC ACID 1,000 MG in 0.9% Normal Saline (100mL Bag) 100 ML 440 MG IV (04:27)
[2022-12-08 08:00] VITALS: BP 145/78; PULSE 64; RESP 14; TEMP 36.4; O2SAT 99
== END 2022-12-08 08:22 | disposition home or self-care (01) ==
PROVIDERS: Emergency Provider Emergency Medicine; PCP Family Medicine; Visit Provider Emergency Medicine
DX: T78.3XXA Angioneurotic edema, initial encounter (principal); E11.9 Type 2 diabetes mellitus without complications; I10 Essential (primary) hypertension; T46.4X5A Adverse effect of angiotensin-converting-enzyme inhibitors, initial encounter; Z79.899 Other long term (current) drug therapy; Z79.84 Long term (current) use of oral hypoglycemic drugs
CPT/HCPCS: 96374; 96375; 99285; J7050; A4216; J3490

== ENCOUNTER → 2023-08-22 | Outpatient (CLI) | payer MEDICARE, OTHER, SELFPAY ==
[2023-08-22 12:58] LABS: Microalbumin,Random Urine 10.6 mg/L (NO RANGE EST.); Microalbumin:Creatinine Ratio 19.3 mg/g CRE (<30 mg/g CRE)
[2023-08-22 14:46] LABS: ALB/GLOB Ratio 1.2 RATIO (0.9-2.4); AST(SGOT) 22 U/L (15-37); Alanine Aminotransfer ALT/SGPT 22 U/L (13-56); Albumin, Serum 4.1 g/dL (3.2-5.0); Alkaline Phosphatase 125 U/L (45-117); Anion Gap 5 (5-15); BUN 24 mg/dL (7-18); BUN/Creat Ratio 28.2 RATIO (10-20); Calcium,Total 9.8 mg/dL (8.5-10.1); Chloride 106 mmol/L (98-107); Cholesterol 152 mg/dL (200); Creatinine, Serum 0.85 mg/dL (0.55-1.02); EST Glomerular Filtration Rate 70 mL/min (>60); Est Glom Filt Rate - Afr Amer 84 mL/min (>60); Globulin 3.5 g/dL (2.2-4.2); Glucose 84 mg/dL (74-106); High Density Lipoprotein 53 mg/dL; Potassium 3.9 mmol/L (3.5-5.1); Protein, Total 7.6 g/dL (6.4-8.2); Sodium Level 137 mmol/L (136-145); Triglycerides 91 mg/dL; Very Low Density Lipoprotein 18 mg/dL (5-40)
== END | disposition home or self-care (01) ==
LOC: MTLAB 11:06
PROVIDERS: PCP Family Medicine; Referring Provider Family Medicine; Visit Provider Family Medicine
DX: E11.9 Type 2 diabetes mellitus without complications (principal)
CPT/HCPCS: 36415; 80053; 80061; 82043; 82570

== ENCOUNTER → 2023-12-17 | Outpatient (CLI) | payer MEDICARE, OTHER, SELFPAY | END | disposition home or self-care (01) | LOC: MFPLAB 13:23 | PROVIDERS: PCP Family Medicine; Referring Provider Family Medicine; Visit Provider Family Medicine | DX: N39.0 Urinary tract infection, site not specified (principal) | CPT/HCPCS: 87077; 87086; 87088; 87186 ==

== ENCOUNTER → 2024-06-30 | Outpatient (CLI) | payer MEDICARE, OTHER, SELFPAY ==
[2024-06-30 10:56] LABS: Anion Gap 17 (5-15); BUN 25 mg/dL (4-19); BUN/Creat Ratio 29.1 RATIO (10-20); Calcium,Total 10.1 mg/dL (7.6-11.0); Carbon Dioxide 21.5 mmol/L (21.0-32.0); Chloride 103 mmol/L (98-108); Cholesterol 185 mg/dL (<=200); Creatinine, Serum 0.87 mg/dL (0.70-1.20); EST Glomerular Filtration Rate 70 (>60); Glucose 156 mg/dL (70-99); High Density Lipoprotein 40 mg/dL; Low Density Lipoprotein Calc. 101 mg/dL; Potassium 3.7 mmol/L (3.3-5.1); Sodium Level 141 mmol/L (133-145); Triglycerides 218 mg/dL; Very Low Density Lipoprotein 44 mg/dL (5-40); cholesterol:hdl ratio screen 4.61
[2024-06-30 10:59] LABS: Microalbumin,Random Urine < 12.0 mg/L (NO RANGE EST.); Microalbumin:Creatinine Ratio UNABLE TO CALCULATE mg/g CRE
== END | disposition home or self-care (01) ==
LOC: MFPLAB 08:19
PROVIDERS: PCP Family Medicine; Referring Provider Family Medicine; Visit Provider Family Medicine
DX: E11.9 Type 2 diabetes mellitus without complications (principal)
CPT/HCPCS: 36415; 80048; 80061; 82043; 82570

== ENCOUNTER → 2024-10-06 | Outpatient (CLI) | payer MEDICARE, OTHER, SELFPAY ==
--- NOTE | 2024-10-06 12:28 | BI_ITS ---
EXAM: SCRN MAMM (CAD)W/CHELSEY BILAT DATE: 10/06/2024 CLINICAL HISTORY: F, Age 73 y/o , SCREENING No family history. TECHNIQUE: SCRN MAMM (CAD)W/CHELSEY BILAT COMPARISON: Prior exam(s) dated November 18, 2018.. FINDINGS: TISSUE DENSITY: The breasts are almost entirely fatty. Bilateral Breast Mammographic Findings: No significant masses, calcifications or other abnormalities are identified. No suspicious masses, areas of developing architectural distortion, or suspicious calcifications. There has been no significant interval change. BI/SCRN MAMM (CAD)W/CHELSEY BILAT IMPRESSION: Stable examination. OVERALL FINAL ASSESSMENT BI-RADS 1: NEGATIVE. RECOMMENDATION: Routine annual follow-up in 1 Year A letter with findings and recommendations will be mailed to the patient. Reading Location: [id number]
--- OUTSIDE RECORDS SUMMARY | 2024-10-06 22:17 | XMS RPT_ITS | CCD ---
Author Organization [facility] Care Team Providers Care Veterinarian Small Animal Name Role Phone Curtis Avila Primary Care Unavailable Curtis Avila Attending Unavailable Margarita, Curtis Referring Unavailable Margarita, Curtis Attending Unavailable Curtis Avila Referring Unavailable Curtis Avila Primary Care Unavailable Margarita, Curtis Attending Unavailable Margarita, Curtis Referring Unavailable Margarita, Curtis Primary Care Unavailable Allergies Allergy Classification Reported Allergen(s) Allergy Type Date of Onset Reaction(s) Facility (6 sources) Penicillins; Translations: [Penicillins] Allergy to substance 08-21-2017 Hives [facility] (1 source) Ramipril Drug Allergy 12-08-2022 Angioedema [facility] (1 source) Ramipril Drug Allergy 12-08-2022 [facility] Repository Medications Current Medications Medication Drug Class(es) Dates Sig (Normalized) Sig (Original) amitriptyline hydrochloride 10 mg oral tablet (5 sources) Tricyclic Antidepressant Start: 08-20-2017 take 10 mg by mouth once daily Amitriptyline Active 10 MG PO DAILY August 20, 2017 12:00am calcium carbonate 1500 mg / cholecalciferol 200 unt oral capsule (1 source) Vitamin D Start: 12-08-2022 take 1 capsule by mouth once daily Calcium Carbonate-Vitamin D3 (Calcium 600 + D(3)) 600 mg-5 mcg (200 unit) capsule Active 1 CAP PO DAILY December 08, 2022 12:00am 24 hr dilTIAZem hydrochloride 240 mg extended release oral capsule (5 sources) Calcium Channel Caprice Start: 08-20-2017 take 1 capsule by mouth at bedtime Diltiazem Hcl Active 1 CAP PO AT BEDTIME August 20, 2017 12:00am empagliflozin 25 mg oral tablet (1 source) Sodium-Glucose Cotransporter 2 Inhibitor Start: 12-08-2022 take 1 tablet by mouth once daily Empagliflozin (Empagliflozin 25 Mg Tablet) 25 mg tablet Active 25 MG PO DAILY December 08, 2022 12:00am gemfibrozil 600 mg oral tablet (5 sources) Peroxisome Proliferator Receptor alpha Agonist Start: 08-20-2017 take 600 mg by mouth twice daily Gemfibrozil Active 600 MG PO TWICE A DAY August 20, 2017 12:00am glipiZIDE 5 mg oral tablet (5 sources) Sulfonylurea Start: 08-20-2017 take 5 mg by mouth at bedtime Glipizide Active 5 MG PO AT BEDTIME August 20, 2017 12:00am metFORMIN hydrochloride 1000 mg oral tablet (5 sources) Biguanide Start: 08-20-2017 take 1000 mg by mouth twice daily Metformin Active 1000 MG PO TWICE A DAY August 20, 2017 12:00am Ndvbtyfu-Iuq-Gcya-Fa- Vit K-Lut (Multivitamin Women 50 Plus) 8 mg iron-400 mcg-50 mcg tablet (1 source) Start: 12-08-2022 take 1 tablet by mouth once daily Wvxtfqjz-Zzd-Yjyg- Fa-Vit K-Lut (Multivitamin Women 50 Plus) 8 mg iron-400 mcg-50 mcg tablet Active 1 TABLET PO DAILY December 08, 2022 12:00am simvastatin 10 mg oral tablet (5 sources) HMG-CoA Reductase Inhibitor Start: 08-20-2017 take 10 mg by mouth at bedtime Simvastatin Active 10 MG PO AT BEDTIME August 20, 2017 12:00am Completed/Discontinued Medications Medication Drug Class(es) Dates Sig (Normalized) Sig (Original) dapagliflozin 5 mg oral tablet (5 sources) Sodium-Glucose Cotransporter 2 Inhibitor Start: 08-20-2017 End: 12-08-2022 take 1 tablet by mouth once daily Dapagliflozin Propanediol (Farxiga) 5 MG tablet Discontinued 5 MG PO DAILY August 20, 2017 12:00am December 08, 2022 4:30am ramipril 5 mg oral capsule (5 sources) Angiotensin Converting Enzyme Inhibitor Start: 08-20-2017 End: 12-08-2022 take 5 mg by mouth once daily Ramipril Discontinued 5 MG PO DAILY August 20, 2017 12:00am December 08, 2022 5:07am Problems Active Problems Problem Classification Problem Date Documented Da te Episodic/Chronic Diabetes mellitus without complication (1 source) Type 2 diabetes mellitus without complications; Translations: [Type 2 diabetes mellitus without complications] Onset: 07-03-2024 Chronic Other circulatory disease (1 source) H/O: hypertension; Translations: [Personal history of other diseases of the circulatory system] 12-08-2022 Episodic Other injuries and conditions due to external causes (1 source) Angioedema due to angiotensin-convert ing-enzyme inhibitor; Translations: [Angioneurotic edema, initial encounter] 12-08-2022 Episodic Other nutritional; endocrine; and metabolic disorders (1 source) H/O: diabetes mellitus; Translations: [Personal history of other endocrine, nutritional and metabolic disease] 12-08-2022 Episodic Other screening for suspected conditions (not mental disorders or infectious disease) (1 source) Encounter for screening mammogram for malignant neoplasm of breast; Translations: [Encounter for screening mammogram for malignant neoplasm of breast] Onset: 10-02-2024 Episodic Other upper respiratory disease (7 sources) Bleeding from nose; Translations: [Epistaxis] 01-05-2020 Episodic Other upper respiratory disease (3 sources) Epistaxis; Translations: [Recurrent epistaxis] 08-22-2017 Episodic Past or Other Problems Problem Classification Problem Date Documented Da te Episodic/Chronic Urinary tract infections (1 source) Urinary tract infection, site not specified; Translations: [Urinary tract infection, site not specified] Onset: 01-13-2024 Episodic Results Test Name Value Interpretation Reference Range Facility Basic Metabolic Profile (BMP )on 06-30-2024 BUN/CRE 29.1 RATIO High 10-20 [facility] Comment on above: Order Comment: MIACR E Performed By: #### L 502.0250, L500.2500, L500.4100 #### [facility] [address] [place], [address] Calcium [Mass/Vol] 10.1 mg/dL Normal 7.6-11.0 [facility] Comment on above: Order Comment: MIACR E Performed By: #### L 502.0250, L500.2500, L500.4100 #### [facility] [address] [place], [address] Chloride [Moles/Vol] 103 mmol/L Normal 98-108 [facility] Comment on above: Order Comment: MIACR E Performed By: #### L 502.0250, L500.2500, L500.4100 #### [facility] [address] [place], [address] CO2 [Moles/Vol] 21.5 mmol/L Normal 21.0-32.0 [facility] Comment on above: Order Comment: MIACR E Performed By: #### L 502.0250, L500.2500, L500.4100 #### [facility] [address] [place], [address] Creatinine [Mass/Vol] 0.87 mg/dL Normal 0.70-1.20 [facility] Comment on above: Order Comment: MIACR E Performed By: #### L 502.0250, L500.2500, L500.4100 #### [facility] [address] [place], [address] GAP 17 High 5-15 [facility] Comment on above: Order Comment: MIACR E Performed By: #### L 502.0250, L500.2500, L500.4100 #### [facility] [address] [place], [address] GFR/1.73 sq M.predicted among non-blacks MDRD (S/P/Bld) [Vol rate/Area] 70 mL/min/{1.73_m2} Normal >60 [facility] Comment on above: Order Comment: MIACR E Result Comment: mL/m in/1.73m2 CKD-EPI Creatinine Equation (2020) Performed By: #### L 502.0250, L500.2500, L500.4100 #### [facility] [address] [place], [address] Glucose [Mass/Vol] 156 mg/dL High 70-99 [facility] Comment on above: Order Comment: MIACR E Performed By: #### L 502.0250, L500.2500, L500.4100 #### [facility] [address] [place], [address] Potassium [Moles/Vol] 3.7 mmol/L Normal 3.3-5.1 [facility] Comment on above: Order Comment: MIACR E Performed By: #### L 502.0250, L500.2500, L500.4100 #### [facility] [address] [place], [address] Sodium [Moles/Vol] 141 mmol/L Normal 133-145 [facility] Comment on above: Order Comment: MIACR E Performed By: #### L 502.0250, L500.2500, L500.4100 #### [facility] [address] [place], [address] Urea nitrogen [Mass/Vol] 25 mg/dL High 4-19 [facility] Comment on above: Order Comment: MIACR E Performed By: #### L 502.0250, L500.2500, L500.4100 #### [facility] [address] [place], [address] Lipid Profileon 06-30-2024 CHOL:HDL 4.61 Normal [facility] Comment on above: Performed By: #### L 502.0250, L500.2500, L500.4100 #### [facility] [address] [place], [address] Cholesterol [Mass/Vol] 185 mg/dL Normal <=200 [facility] Comment on above: Result Comment: Chol esterol level, Desirable <200 mg/dL Borderline high cholesterol 200-239 mg/dL High cholesterol >=240 mg/dL Recommendations of the NCEP Adult Treatment Panel for the following risk-cutoff thresholds for the [place] Stateless population. Performed By: #### L 502.0250, L500.2500, L500.4100 #### [facility] [address] [place], [address] Cholesterol in HDL [Mass/Vol] 40 mg/dL Normal [facility] Comment on above: Result Comment: Geovanna onal Cholesterol Education Program (NCEP) guidelines: <40 mg/dL: Low HDL-cholesterol (major risk factor for CHD) >= 60 mg/dL: High HDL-cholesterol (negative risk factor for CHD) HDL-cholesterol is affected by a number of factors, e.g. smoking, exercise, hormones, sex and age. Performed By: #### L 502.0250, L500.2500, L500.4100 #### [facility] [address] [place], [address] Cholesterol in LDL [Mass/Vol] 101 mg/dL Normal [facility] Comment on above: Result Comment: Bord ceauph=399-859 mg/dL Higher Vssl=672 mg/dL or greater Performed By: #### L 502.0250, L500.2500, L500.4100 #### [facility] [address] [place], [address] Cholesterol in VLDL [Mass/Vol] 44 mg/dL High 5-40 [facility] Comment on above: Performed By: #### L 502.0250, L500.2500, L500.4100 #### [facility] [address] [place], [address] Triglyceride [Mass/Vol] 218 mg/dL High [facility] Comment on above: Result Comment: The drugs N-Acetylcysteine and Metamizole may falsely depress this assay. Normal range: <150 mg/dL Borderline High: 150-199 mg/dL High: 200-499 mg/dL Very High: >500 mg/dL Performed By: #### L 502.0250, L500.2500, L500.4100 #### [facility] [address] [place], [address] Microalb:Creat Ratio,Random URon 06-30-2024 Creatinine [Mass/Vol] 48.80 mg/dL Normal 28.00-217.00 [facility] Comment on above: Performed By: #### L 502.0250, L500.2500, L500.4100 #### [facility] [address] [place], [address] MALB:CREAT UNABLE TO CALCULATE Normal [facility] Comment on above: Performed By: #### L 502.0250, L500.2500, L500.4100 #### [facility] [address] [place], [address] MICROALBUMIN,UR < 12.0 Normal NO RANGE EST. [facility] Comment on above: Performed By: #### L 502.0250, L500.2500, L500.4100 #### [facility] [address] [place], [address] Urine Cultureon 12-20-2023 [facility] Copy of report sent to Infection Control Printer [id number] 12/19/23 0935 KEN. Urine Culture RESULTS CALLED TO Rob MERCHANT 12/19/23 0952 Shanika Victoria. REPORT READ BACK BY . Escherichia coli [place] Count >100,000 Escherichia coli: REACTION Amikacin Islt ELEAZAR <=2 Ampicillin Islt ELEAZAR >=32 R Ampicillin+Sulbac Islt ELEAZAR >=32 R ceFAZolin Islt ELEAZAR >=64 R Cefepime Islt ELEAZAR <=0.12 S cefoTEtan Islt ELEAZAR <=4 S Ciprofloxacin Islt ELEAZAR <=0.25 S B-Lactamase Extended Susc Islt NEG Gentamicin Islt ELEAZAR <=1 S Imipenem Islt ELEAZAR <=0.25 S levoFLOXacin Islt ELEAZAR <=0.12 S Meropenem Islt ELEAZAR <=0.25 S Nitrofurantoin Islt ELEAZAR <=16 S Pip+Tazo Islt ELEAZAR 8 S Tetracycline Islt ELEAZAR <=1 S Tobramycin Islt ELEAZAR <=1 S TMP SMX Islt ELEAZAR <=20 S Cefuroxime Islt ELEAZAR 16 I Normal [facility] Comment on above: Performed By: #### M 100.2200 #### [facility] [address] [place], [address] Urine Cultureon 12-18-2023 [facility] UNABLE TO CHANGE SOURCE FROM INTERFACE TO CLEAN CATCH. SEE NEW ORDER FOR RESULTS. Order Date: 12/17/23 Order Info: [id number] - CUUR Comments: uti Urine Culture Normal [facility] Comment on above: Performed By: #### M 100.0229 #### [facility] [address] [place], [address] Basophil percentageOrdered B y: Curtis Avila on 11-21-2022 Chloride [Moles/Vol] 107 mmol/L 98-107 [facility] Cholesterol [Mass/Vol] 169 mg/dL <200 [facility] Comment on above: <200 mg/dL Desirable 200-240 mg/dL Borderline >240 mg/dL High Risk Glucose [Mass/Vol] 129 mg/dL 74-106 [facility] Comment on above: Fasting Glucose resu lt greater than or equal to 126 mg/dL suggests DIABETES MELLITUS per A.D.A. criteria. Potassium [Moles/Vol] 4.3 mmol/L 3.5-5.1 [facility] Sodium [Moles/Vol] 140 mmol/L 136-145 [facility] Triglyceride [Mass/Vol] 169 mg/dL <199 [facility] Comment on above: The drugs N-Acetylcy steine and Metamizole may falsely depress this assay.Serum Triglycerides Reference Interval Normal <150 mg/dL Borderline high 150 - 199 mg/dL High 200 - 499 mg/dL Very High > or = 500 mg/dL Laboratory - Chemistry and C hemistry - challengeOrdered By: Curtis Avila on 11-21-2022 CO2 [Moles/Vol] 26.0 mmol/L 21.0-32.0 [facility] Urea nitrogen/Creatinine [Mass ratio] 22.8 mg/mg 10-20 [facility] No Panel InformationOrdered By: Curtis Avila on 11-21-2022 Estimated GFR (MDRD) Amer 82 mL/min >60 [facility] Comment on above: GFR Calc Estimated GFR (MDRD) Non-Af Amer 68 mL/min >60 [facility] Comment on above: Non- GFR Calc Urine Microalbumin/Creatinine Ratio 13.4 mg/g CRE <30 [facility] Serum or plasma calcium samantha urement (mass/volume)Ordered By: Curtis Avila on 11-21-2022 Calcium [Mass/Vol] 9.6 mg/dL 8.5-10.1 [facility] Serum or plasma cholesterol in HDL measurement (mass/volume)Ordered By: Curtis Avila on 11-21-2022 Cholesterol in HDL [Mass/Vol] 40 mg/dL >40 [facility] Comment on above: The drugs N-Acetylcy steine and Metamizole may falsely depress this assay. Reference Range HDL <40 mg/dL Low HDL Cholesterol HDL >or= 60 mg/dL High HDL Cholesterol Serum or plasma cholesterol in VLDL measurement (mass/volume)Ordered By: Curtis Avila on 11-21-2022 Cholesterol in VLDL [Mass/Vol] 34 mg/dL 5-40 [facility] Serum or plasma creatinine m easurement (mass/volume)Ordered By: Curtis Avila on 11-21-2022 Creatinine [Mass/Vol] 0.88 mg/dL 0.55-1.02 [facility] Comment on above: The validity of the calculated GFR & GFRAA in patients over 70 years has not been determined. Clinical correlation is essential. Serum or plasma low density lipoprotein (LDL) cholesterol measurement (mass/volume)Ordered By: Curtis Avila on 11-21-2022 Cholesterol in LDL [Mass/Vol] 95 mg/dL 0-130 [facility] Serum or plasma urea nitroge n measurement (mass/volume)Ordered By: Curtis Avila on 11-21-2022 Urea nitrogen [Mass/Vol] 20 mg/dL 7-18 [facility] Thin prep Papanicolaou smear with manual screeningOrdered By: Curtis Avila on 11-21-2022 Thin prep Papanicolaou smear with manual screening 7 5-15 [facility] Thin prep Papanicolaou smear with manual screening 7.1 mg/L NO RANGE EST. [facility] Urine creatinine measurement (mass/volume)Ordered By: Curtis Avila on 11-21-2022 Creatinine (U) [Mass/Vol] 52.80 mg/dL NO RANGE EST. [facility] Basophil percentageon 2021 Chloride [Moles/Vol] 107 mmol/L 98-107 [facility] Work Phone: Cholesterol [Mass/Vol] 174 mg/dL <200 [facility] Work Phone: Comment on above: <200 mg/dL Desirable 200-240 mg/dL Borderline >240 mg/dL High Risk Glucose [Mass/Vol] 154 mg/dL 74-106 [facility] Work Phone: Comment on above: Fasting Glucose resu lt greater than or equal to 126 mg/dL suggests DIABETES MELLITUS per A.D.A. criteria. Potassium [Moles/Vol] 4.3 mmol/L 3.5-5.1 [facility] Work Phone: Sodium [Moles/Vol] 141 mmol/L 136-145 [facility] Work Phone: Triglyceride [Mass/Vol] 217 mg/dL <199 [facility] Work Phone: Comment on above: The drugs N-Acetylcy steine and Metamizole may falsely depress this assay.Serum Triglycerides Reference Interval Normal <150 mg/dL Borderline high 150 - 199 mg/dL High 200 - 499 mg/dL Very High > or = 500 mg/dL Laboratory - Chemistry and C hemistry - challengeon 02-27-2022 CO2 [Moles/Vol] 25.0 mmol/L 21.0-32.0 [facility] Work Phone: Urea nitrogen/Creatinine [Mass ratio] 20.3 mg/mg - [facility] Work Phone: No Panel Informationon 02-27 Estimated GFR (MDRD) Amer 86 mL/min >60 [facility] Work Phone: Comment on above: GFR Calc Estimated GFR (MDRD) Non-Af Amer 71 mL/min >60 [facility] Work Phone: Comment on above: Non- GFR Calc Urine Microalbumin/Creatinine Ratio 19.9 mg/g CRE <30 [facility] Work Phone: Serum or plasma calcium samantha urement (mass/volume)on 02-27-2022 Calcium [Mass/Vol] 9.4 mg/dL 8.5-10.1 [facility] Work Phone: Serum or plasma cholesterol in HDL measurement (mass/volume)on 02-27-2022 Cholesterol in HDL [Mass/Vol] 38 mg/dL >40 [facility] Work Phone: Comment on above: The drugs N-Acetylcy steine and Metamizole may falsely depress this assay. Reference Range HDL <40 mg/dL Low HDL Cholesterol HDL >or= 60 mg/dL High HDL Cholesterol Serum or plasma cholesterol in VLDL measurement (mass/volume)on 02-27-2022 Cholesterol in VLDL [Mass/Vol] 43 mg/dL 5-40 [facility] Work Phone: Serum or plasma creatinine m easurement (mass/volume)on 02-27-2022 Creatinine [Mass/Vol] 0.84 mg/dL 0.55-1.02 [facility] Work Phone: Comment on above: The validity of the calculated GFR & GFRAA in patients over 70 years has not been determined. Clinical correlation is essential. Serum or plasma low density lipoprotein (LDL) cholesterol measurement (mass/volume)on 02-27-2022 Cholesterol in LDL [Mass/Vol] 93 mg/dL 0-130 [facility] Work Phone: Serum or plasma urea nitroge n measurement (mass/volume)on 02-27-2022 Urea nitrogen [Mass/Vol] 17 mg/dL 7-18 [facility] Work Phone: Thin prep Papanicolaou smear with manual screeningon 02-27-2022 Thin prep Papanicolaou smear with manual screening 9 5-15 [facility] Work Phone: Thin prep Papanicolaou smear with manual screening 11.0 mg/L NO RANGE EST. [facility] Work Phone: Urine creatinine measurement (mass/volume)on 02-27-2022 Creatinine (U) [Mass/Vol] 55.40 mg/dL NO RANGE EST. [facility] Work Phone: Basophil percentageon 2021 Bilirubin [Mass/Vol] 0.70 mg/dL 0.20-1.00 [facility] Work Phone: Comment on above: For patients on eltr ombopag therapy, use of Dimension [place] TBIL is not recommended. Chloride [Moles/Vol] 107 mmol/L 98-107 [facility] Work Phone: Cholesterol [Mass/Vol] 166 mg/dL <200 [facility] Work Phone: Comment on above: <200 mg/dL Desirable 200-240 mg/dL Borderline >240 mg/dL High Risk Glucose [Mass/Vol] 160 mg/dL 74-106 [facility] Work Phone: Comment on above: Fasting Glucose resu lt greater than or equal to 126 mg/dL suggests DIABETES MELLITUS per A.D.A. criteria. Potassium [Moles/Vol] 4.2 mmol/L 3.5-5.1 [facility] Work Phone: Protein [Mass/Vol] 7.6 g/dL 6.4-8.2 [facility] Work Phone: Sodium [Moles/Vol] 137 mmol/L 136-145 [facility] Work Phone: Triglyceride [Mass/Vol] 159 mg/dL [facility] Work Phone: Comment on above: The drugs N-Acetylcy steine and Metamizole may falsely depress this assay.Serum Triglycerides Reference Interval Normal <150 mg/dL Borderline high 150 - 199 mg/dL High 200 - 499 mg/dL Very High > or = 500 mg/dL Laboratory - Chemistry and C hemistry - challengeon 08-11-2021 ALP [Catalytic activity/Vol] 133 U/L 45-117 [facility] Work Phone: ALT [Catalytic activity/Vol] 20 U/L 13-56 [facility] Work Phone: CO2 [Moles/Vol] 21.0 mmol/L 21.0-32.0 [facility] Work Phone: Globulin (S) [Mass/Vol] 3.8 g/dL 2.2-4.2 [facility] Work Phone: Urea nitrogen/Creatinine [Mass ratio] 23.3 mg/mg 10-20 [facility] Work Phone: No Panel Informationon 08-11 Estimated GFR (MDRD) Amer 79 mL/min >60 [facility] Work Phone: Comment on above: GFR Calc Estimated GFR (MDRD) Non-Af Amer 65 mL/min >60 [facility] Work Phone: Comment on above: Non- GFR Calc Serum or plasma albumin samantha urement (mass/volume)on 08-11-2021 Albumin [Mass/Vol] 3.8 g/dL 3.2-5.0 [facility] Work Phone: Serum or plasma albumin/glob ulin mass ratioon 08-11-2021 Albumin/Globulin [Mass ratio] 1.0 {ratio} 0.9-2.4 [facility] Work Phone: Serum or plasma calcium samantha urement (mass/volume)on 08-11-2021 Calcium [Mass/Vol] 9.5 mg/dL 8.5-10.1 [facility] Work Phone: Serum or plasma cholesterol in HDL measurement (mass/volume)on 08-11-2021 Cholesterol in HDL [Mass/Vol] 41 mg/dL [facility] Work Phone: Comment on above: The drugs N-Acetylcy steine and Metamizole may falsely depress this assay. Reference Range HDL <40 mg/dL Low HDL Cholesterol HDL >or= 60 mg/dL High HDL Cholesterol Serum or plasma cholesterol in VLDL measurement (mass/volume)on 08-11-2021 Cholesterol in VLDL [Mass/Vol] 32 mg/dL 5-40 [facility] Work Phone: Serum or plasma creatinine m easurement (mass/volume)on 08-11-2021 Creatinine [Mass/Vol] 0.90 mg/dL 0.55-1.02 [facility] Work Phone: Comment on above: The validity of the calculated GFR & GFRAA in patients over 70 years has not been determined. Clinical correlation is essential. Serum or plasma low density lipoprotein (LDL) cholesterol measurement (mass/volume)on 08-11-2021 Cholesterol in LDL [Mass/Vol] 93 mg/dL 0-130 [facility] Work Phone: Serum or plasma urea nitroge n measurement (mass/volume)on 08-11-2021 Urea nitrogen [Mass/Vol] 21 mg/dL 7-18 [facility] Work Phone: Thin prep Papanicolaou smear with manual screeningon 08-11-2021 Thin prep Papanicolaou smear with manual screening 15 U/L 15-37 [facility] Work Phone: Thin prep Papanicolaou smear with manual screening 9 5-15 [facility] Work Phone: Whole blood hemoglobin A1c/t otal hemoglobin ratio (mass fraction)on 08-11-2021 HbA1c (Bld) [Mass fraction] 6.7 % 3.8-5.6 [facility] Work Phone: Comment on above: Normal < 5.7 % Predi abetic 5.7 - 6.4 % Diabetic >or= 6.5 % Please note range changes. Laboratory - Microbiology an d Antimicrobial susceptibilityon 05-01-2021 SARS-CoV-2 (COVID-19) RNA ZAIRA+probe Ql (Unsp spec) Not detected Not Detect [facility] Work Phone: Comment on above: Normal Reference Ran ge: Not DetectedMethod:(RT-PCR) real-time reverse transcriptase PCRLuminex BRIDGET Instrument*The Food and Drug Administration (FDA) has issued an Emergency Use Authorization (EAU) for the BRIDGET SARS-CoV-2 Assay for the rapid detection of the virus that causes COVID-19. This test has been validated, but the FDAs independent review of this validation is pending.*Negative results do not preclude infection and should not be used as the sole basis for treatment or patient management. Optimum specimen types and timing for peak viral levels during infections caused by SARS-CoV-2 have not been determined. Collection of multiple specimens from the same patient may be necessary to detect the virus. The possibility of a false negative result should be considered if the patient has clinical presentation or has had recent exposure. Vital Signs Date Time Vital Sign Value Performing Clinician Dominick bales 12-08-2022 08:00-0400 Body temperature 97.6 [degF] [facility] 12-08-2022 08:00-0400 Diastolic blood pressure 78 mm[Hg] [facility] 12-08-2022 08:00-0400 Heart rate 64 /min [facility] 12-08-2022 08:00-0400 Respiratory rate 14 /min [facility] 12-08-2022 08:00-0400 SaO2% (BldA) [Mass fraction] 99 % [facility] 12-08-2022 08:00-0400 Systolic blood pressure 145 mm[Hg] [facility] 12-08-2022 03:17-0400 Body height 147.32 cm [facility] 07-22-2021 01:35-0400 Diastolic blood pressure 76 mm[Hg] [facility] Work Phone: 07-22-2021 01:35-0400 Heart rate 68 /min [facility] Work Phone: 07-22-2021 01:35-0400 Respiratory rate 16 /min [facility] Work Phone: 07-22-2021 01:35-0400 SaO2% (BldA) [Mass fraction] 98 % [facility] Work Phone: 07-22-2021 01:35-0400 Systolic blood pressure 126 mm[Hg] [facility] Work Phone: 07-21-2021 21:47-0400 Body height 149.86 cm [facility] Work Phone: 07-21-2021 21:47-0400 Body mass index (BMI) [Ratio] 32.3 kg/m2 [facility] Work Phone: 07-21-2021 21:47-0400 Body temperature 96.8 [degF] [facility] Work Phone: 07-21-2021 21:47-0400 Body weight 72.57 kg [facility] Work Phone: Encounters Encounter Date Encounter Type Care Provider Facility Start: 10-06-2024 ambulatory [facility] Facility:[facility] Start: 06-30-2024 End: 06-30-2024 [facility] Facility:[facility] Start: 12-17-2023 End: 12-17-2023 [facility] Facility:[facility] Start: 12-08-2022 End: 12-08-2022 [facility] Start: 11-21-2022 End: 11-21-2022 ambulatory [facility] Work Phone: Start: 11-21-2022 End: 11-21-2022 Patient encounter procedure [facility] Start: 02-27-2022 End: 02-27-2022 ambulatory [facility] Work Phone: Start: 02-27-2022 End: 02-27-2022 Patient encounter procedure [facility] Start: 08-11-2021 End: 08-11-2021 Patient encounter procedure [facility] Start: 07-21-2021 End: 07-22-2021 Emergency department patient visit [facility] Start: 05-01-2021 End: 05-01-2021 [facility] Treatment Date Care Activity Detail Author Patient Education [facility] Work Phone: Patient referral [facility] Work Phone: Immunizations Immunization Date Immunization Notes Care Provider Juanito ro 02-29-2016 tetanus and diphther ia toxoids, adsorbed, preservative free, for adult use (2 Lf of tetanus toxoid and 2 Lf of diphtheria toxoid) [facility] Payers Date Payer Category Payer Self-pay [id number] 2023 Unknown [id number] 2010 Medicare [id number] Private Health Insurance [facility] [id number] e Unknown [facility] [id number] a Unknown [id number] Unknown [id number] Unknown [id number] Social History Date Type Detail Facility Start: 07-21-2021 End: 12-08-2022 Tobacco smoking status NHIS Unknown if ever smoked [facility] Start: 1950 Sex Assigned At Female W [facility] Mental Status Date Assessment Result Facility 12-08-2022 Cognitive function Level Of Cons ciousness Awake;Alert;Appropriate;Follow s Commands [facility] Work Phone: Discharge summary 12-08-2022 Note Date & Type Note Facility 12-08-2022 Discharge summary Note Date/Time December 08, 2022 3:30am [facility] Medical Records Department [address] [place] [address] Emergency Department Summary 12/08/22 MR#: [id number] Acct: [id number] Name: JOHN LYNNE Rep #:[id number] : 1950 72 From: Manuel Plasencia PCP: Dr. Curtis Avila MD Status:REG E R Location: ED HPI History of Present Illness Chief Complaint: Other, Pain/Inj Informant: patient Narrative Narrative: Presents by EMS for increasing swelling upper lip. Woke up use restroom at 2 AMless than 90 minutes ago, she felt sensation looked in the mirror is puffy on the left side. Since then progressed over the top. States puffiness in cheek and nose. No lip or tongue swelling no dyspnea no scratchy throat. She ate tomato for dinner last night, she is eating tomatoes all her life. Denies any urticarial lesions. Denies history of similar in the past. From medication sheis on ramipril for blood pressure and she states she has been on this for years. Prior similar symptoms: No PFSH PFSH Home Medications amitriptyline 10 mg tablet 10 mg PO DAILY 08/20/17 [History Last Taken Unknown] diltiazem HCl 240 mg capsule,extended release 24 hr, controlled 1 cap PO QHS 08/20/17 [History Last Taken Unknown] gemfibrozil 600 mg tablet 600 mg PO BID 08/20/17 [History Last Taken Unknown] glipizide 5 mg tablet 5 mg PO QHS 08/20/17 [History Last Taken Unknown] metformin 1,000 mg tablet 1,000 mg PO BID 08/20/17 [History Last Taken Unknown] simvastatin 10 mg tablet 10 mg PO QHS 08/20/17 [History Last Taken Unknown] calcium carbonate 600 mg-vitamin D3 5 mcg (200 unit) capsule (Calcium 600 + D(3)) 1 cap PO DAILY 12/08/22 [History Last Taken Unknown] empagliflozin 25 mg tablet (Jardiance) 25 mg PO DAILY 12/08/22 [History Last Taken Unknown] fffiyxuj-iedm-hqoa 8 mg-folic 400 mcg-K 50 mcg-lutein 300 mcg tablet (Multivitamin Women 50 Plus) 1 tab PO DAILY 12/08/22 [History Last Taken Unknown] Allergy/AdvReac Type Severity Reaction Status Date / Time ramipril Allergy Severe Angioedema Verified 12/08/22 05:06 Penicillins [PCN] Allergy Hives Verified 12/08/22 03:15 Social History Smoking Status: Never smoker ROS ROS ED Constitutional Constitutional ED: Denies chills, fever(s) or sweats Eyes Eyes: Denies change in vision ENT ENT ED: Reports other Details: Lip swelling ; Denies dysphagia or sore throat Cardiovascular Cardiovascular: Denies chest pain, leg edema, palpitations or racing heartbeat Respiratory/Chest Respiratory/Chest: Denies cough, dyspnea or dyspnea on exertion Gastrointestinal Gastrointestinal: Denies abdominal pain, diarrhea, nausea or vomiting Genitourinary Genitourinary ED: Denies dysuria, hematuria or urinary frequency Musculoskeletal Musculoskeletal: Denies back pain, extremity pain or neck pain Integumentary Denies rash or wounds Neurologic Neurologic: Denies headache(s), paresthesias or weakness EXAM Physical Exam Const Vital Signs: 12/08/22 03:16 12/08/22 03:17 12/08/22 03:21 Temperature 98.0 F 98.0 F Temperature Source Oral Oral Pulse Rate 85 85 Respiratory Rate 16 16 Respiratory Pattern Normal Blood Pressure 142/70 H 142/70 H Blood Pressure Mean 94 94 Pulse Ox 99 98 Oxygen Delivery Method Room Air Room Air Positive well nourished and well developed General Appearance ED: well developed and NAD HEENT Reports moist mucous membranes HEENT Narrative: Swelling left upper lip across just over midline. Slight swelling maxillary left side. No tongue swelling airway patent. normocephalic and atraumatic Eyes PERRL, EOMs intact bilaterally and conjunctivae normal General Eye ED: Yes normal appearance of both eyes Neck no lymphadenopathy and supple General: Negative for tenderness Chest Wall Chest: Negative for tenderness Resp normal respiratory effort and normal air movement Effort and Inspection: symmetric chest movement; Negative for respiratory distress Cardio regular rate, regular rhythm and no murmurs Peripheral Pulses: pulses 2+ throughout GI normal to inspection, nondistended, normoactive bowel sounds and non-tender Palpation: Negative for guarding or rebound tenderness present Back/Spine no CVA tenderness and no thoracic nor lumbar tenderness Extremity normal to inspection General Extremety ED: Negative for edema or tenderness General Extremity: Negative for edema Neuro oriented x3 and no sensory deficits noted Sensorium / Orientation: awake and alert Skin no rashes or lesions noted and no wounds MDM MDM MDM Narrative Medical decision making narrative: Interventions / MDM: Differential diagnosis: Angioedema Diagnosis considered but do not suspect: N/A My EKG interpretation: N/A Imaging independently reviewed and interpreted by myself: N/A External documents reviewed: N/A Test considered but not ordered:N/A ED course: Patient presenting with angioedema started at 2 AM progressing, no tongue involvement no current dyspnea. She is on BISI inhibitor. IV established we will try allergy medicine of steroids Benadryl and Pepcid. We will closely monitor. 0350: Medications were being given, on reevaluation slight progression more towards the right. There is no tongue involvement. 0400: Allergy meds were all given, reevaluation for progression towards the right. No tongue involvement. IV TXA ordered. 0438: TXA mcfp infused, patient starting to feel some improvement. 0500: Objectively swelling continuing to improve at this time. 0800: Multiple reevaluations swelling upper lip resolved. Patient discharged outpatient follow-up with return precautions. All questions were answered. Re-evaluation: stable Disposition discussed with patient/family/significant other: Patient Case discussed with consulting clinician: N/A This note was generated with [employer] dictation software. It may contain incorrect words, spelling, and punctuation that were not noted in checking the note before signing. 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), History of hypertension, History of diabetes mellitus Instructions: ED Angioedema Prescriptions: Discontinued ramipril 5 capsule 5 mg PO DAILY Patient Comments: No Action diltiazem HCl 240 MG capsule,ext.rel 24h degradable 1 cap PO QHS Patient Comments: TAKE ONE CAPSULE BY MOUTH DAILY simvastatin 10 MG tablet 10 mg PO QHS Patient Comments: TAKE ONE TABLET BY MOUTH DAILY amitriptyline 10 MG tablet 10 mg PO DAILY Patient Comments: Take 1 tablet by mouth daily gemfibrozil 600 MG tablet 600 mg PO BID Patient Comments: TAKE ONE TABLET BY MOUTH TWICE DAILY metformin 1,000 MG tablet 1,000 mg PO BID Patient Comments: TAKE 1 TABLET BY MOUTH TWICE DAILY glipizide 5 tablet 5 mg PO QHS Patient Comments: Jardiance 25 mg tablet 25 mg PO DAILY Patient Comments: take 1 tablet by mouth once daily Multivitamin Women 50 Plus 8 mg iron-400 mcg-50 mcg tablet 1 tab PO DAILY Calcium 600 + D(3) 600 mg-5 mcg (200 unit) capsule 1 cap PO DAILY Primary Care Provider: Curtis Avila Referrals: Curtis Avila MD [Primary Care Provider] - Activity Restrictions/Additional Instructions: stop your ramipril. Status post TXA in the emergency department. No improvement with allergy medications. Follow-up with your doctor. Return if worsening or recurrent symptoms. Disposition Disposition: Home, Self Care What to do if you have Problems For any increased pain, shortness of breath, bleeding, nausea or vomiting, chestpain, or any unexpected problems, contact your Primary Care Provider. Call [facility] ([phone]) or report to the closest Emergency Room. Call 911 if necessary. 12/08/22 0807 <Electronically signed by Manuel Plasencia> Cosigner Signature (if applicable): CC: Dr. Cutris Avila MD ~ Signed [facility] Work Phone: Evaluation note Note Date & Type Note Facility Evaluation note No assessment information availa ble [facility] Work Phone: Hospital Discharge instructions Note Date & Type Note Facility Hospital Discharge instructions Additional Instructions stop your ramipril. Status post TXA in the emergency department. No improvement with allergy medications. Follow-up with your doctor. Return if worsening or recurrent symptoms. [facility] Work Phone: Chief Complaint and Reason for Visit Chief Complaint NOSEBLEED Chief Complaint facial edema Advance Directives No Advanced Directives Records Found Advance Directive Response Recorded Date/ Time Advance Directives No February 10:24pm Living Will No July 21, 2021 9 :53pm Power of It Analyst No July 21, 2021 9:53pm Advance Directive Response Recorded Date/ Time Advance Directives No February 9:24pm Living Will No July 21, 2021 8 :53pm Power of It Analyst No July 21, 2021 8:53pm Advance Directive Response Recorded Date/ Time Advance Directives No February 10:24pm Living Will No December 08, 2022 3:21am Power of It Analyst No November 3:21am Summary Purpose Family History No Family History Records Found Additional Source Comments Goals (unrecognized section and content) Goals may be documented in a n alternate sectionGoals may be documented in an alternate sectionGoals may be documented in an alternate sectionGoals may be documented in an alternate section Care Teams (unrecognized sec tion and content) Team Status: Active Member Role Status Dates Dr. Curtis Avila MD Family Provider Active Dr. Curtis Avila MD Primary Care Provider Active Team Status: Inactive Member Role Status Dates Dr. Curtis Avila MD Primary Care Provider Active Dr. Manuel Escobedo DO Emergency Provider Active Team Status: Inactive Member Role Status Dates Dr. Curtis Avila MD Primary Care Provider, Attending Provider Active INFORMATION SOURCE (unrecogn ized section and content) DATE CREATED AUTHOR 10/03/2024 [facility] FOR RECORDS PERTAINING TO PATIENTS WHO ARE OR HAVE BEEN ENROLLED IN A CHEMICAL DEPENDENCY/SUBSTANCEABUSE PROGRAM, SOME INFORMATION MAY BE OMITTED. This clinical summary was aggregated from multiple sources. Caution should be exercised in using it in the provision of clinical care. This summary normalizes information from multiple sources, and as a consequence, information in this document may materially change the coding, format and clinical context of patient data. In addition, data may be omitted in some cases. CLINICAL DECISIONS SHOULD BE BASED ON THE PRIMARY CLINICAL RECORDS. [employer] [facility]. provides no warranty or guarantee of the accuracy or completeness of information in this document.
== END | disposition home or self-care (01) ==
PROVIDERS: PCP Family Medicine; Referring Provider Family Medicine; Visit Provider Family Medicine
DX: Z12.31 Encounter for screening mammogram for malignant neoplasm of breast (principal)
CPT/HCPCS: 77063; 77067

== ENCOUNTER → 2024-12-31 | Outpatient (CLI) | payer MEDICARE, OTHER, SELFPAY ==
--- OUTSIDE RECORDS SUMMARY | 2024-12-31 16:48 | XMS RPT_ITS | CCD ---
Author Organization [facility] Care Team Providers Care Resaw Tailer Name Role Phone Margarita RICK, Dr. Acevedo Primary Care Provider [phone] Margarita RICK, Dr. Acevedo Attending Provider Margarita RICK, Dr. Acevedo Referring Provider [phone] Curtis Avila Attending Unavailable Margarita, Curtis Primary Care Unavailable Margarita, Curtis Referring Unavailable Margarita, Curtis Attending Unavailable Margarita, Curtis Primary Care Unavailable Margarita, Curtis Referring Unavailable Margarita, Curtis Attending Unavailable Margarita, Curtis Primary Care Unavailable Margarita, Curtis Referring Unavailable Allergies Allergy Classification Reported Allergen(s) Allergy Type Date of Onset Reaction(s) Facility (7 sources) Penicillins; Translations: [Penicillins] Allergy to substance 08-21-2017 Hives [facility] (2 sources) Ramipril Drug Allergy 12-08-2022 Angioedema [facility] Comment on above: upper lip (1 source) Ramipril Drug Allergy 12-08-2022 [facility] Repository Medications Current Medications Medication Drug Class(es) Dates Sig (Normalized) Sig (Original) amitriptyline hydrochloride 10 mg oral tablet (6 sources) Tricyclic Antidepressant Start: 08-20-2017 take 1 tablet by mouth once daily Amitriptyline 10 MG tablet Active 10 mg PO DAILY August 20, 2017 12:00am calcium carbonate 1500 mg / cholecalciferol 200 unt oral capsule (2 sources) Vitamin D Start: 12-08-2022 Calcium Carbonate-Vitamin D3 (Calcium 600 + D(3)) 600 mg-5 mcg (200 unit) capsule Active 1 NMA PO DAILY December 08, 2022 12:00am 24 hr dilTIAZem hydrochloride 240 mg extended release oral capsule (6 sources) Calcium Channel Caprice Start: 08-20-2017 Diltiazem Hcl 240 MG capsule,ext.rel 24h degradable Active 1 NMA PO AT BEDTIME August 20, 2017 12:00am Start: 08-20-2017 take 1 capsule by mo [facility] at bedtime Diltiazem Hcl Active 1 CAP PO AT BEDTIME August 20, 2017 12:00am empagliflozin 25 mg oral tablet (2 sources) Sodium-Glucose Cotransporter 2 Inhibitor Start: 12-08-2022 take 1 tablet by mouth once daily Empagliflozin (Empagliflozin 25 Mg Tablet) 25 mg tablet Active 25 mg PO DAILY December 08, 2022 12:00am gemfibrozil 600 mg oral tablet (6 sources) Peroxisome Proliferator Receptor alpha Agonist Start: 08-20-2017 take 1 tablet by mouth twice daily Gemfibrozil 600 MG tablet Active 600 mg PO TWICE A DAY August 20, 2017 12:00am glipiZIDE 5 mg oral tablet (6 sources) Sulfonylurea Start: 08-20-2017 take 1 tablet by mouth at bedtime Glipizide 5 tablet Active 5 mg PO AT BEDTIME August 20, 2017 12:00am metFORMIN hydrochloride 1000 mg oral tablet (6 sources) Biguanide Start: 08-20-2017 take 1 tablet by mouth twice daily Metformin 1,000 MG tablet Active 1000 mg PO TWICE A DAY August 20, 2017 12:00am Mspxbifk-Ohm-Aozg-F a-Vit K-Lut (Multivitamin Women 50 Plus) 8 mg iron-400 mcg-50 mcg tablet (2 sources) Start: 12-08-2022 take 1 tablet by mouth once daily Gfcwnbtw-Xzi-Xmex-F a-Vit K-Lut (Multivitamin Women 50 Plus) 8 mg iron-400 mcg-50 mcg tablet Active 1 {tbl} PO DAILY December 08, 2022 12:00am Start: 12-08-2022 take 1 tablet by [facility] once daily Oaezeiaq-Fna-Jtin-Fa-Vit K-Lut (Multivitamin Women 50 Plus) 8 mg iron-400 mcg-50 mcg tablet Active 1 TABLET PO DAILY December 08, 2022 12:00am simvastatin 10 mg oral tablet (6 sources) HMG-CoA Reductase Inhibitor Start: 08-20-2017 take 1 tablet by mouth at bedtime Simvastatin 10 MG tablet Active 10 mg PO AT BEDTIME August 20, 2017 12:00am Completed/Discontinued Medications Medication Drug Class(es) Dates Sig (Normalized) Sig (Original) dapagliflozin 5 mg oral tablet (6 sources) Sodium-Glucose Cotransporter 2 Inhibitor Start: 08-20-2017 End: 12-08-2022 take 1 tablet by mouth once daily Dapagliflozin Propanediol (Farxiga) 5 MG tablet Discontinued 5 mg PO DAILY August 20, 2017 12:00am December 08, 2022 4:30am ramipril 5 mg oral capsule (6 sources) Angiotensin Converting Enzyme Inhibitor Start: 08-20-2017 End: 12-08-2022 take 1 capsule by mouth once daily Ramipril 5 capsule Discontinued 5 mg PO DAILY August 20, 2017 12:00am December 08, 2022 5:07am Problems Active Problems Problem Classification Problem Date Documented Da te Episodic/Chronic Diabetes mellitus without complication (1 source) Type 2 diabetes mellitus without complications; Translations: [Type 2 diabetes mellitus without complications] Onset: 07-03-2024 Chronic Other circulatory disease (2 sources) H/O: hypertension; Translations: [Personal history of other diseases of the circulatory system] 12-08-2022 Episodic Other injuries and conditions due to external causes (2 sources) Angioedema due to angiotensin-convert ing-enzyme inhibitor; Translations: [Angioneurotic edema, initial encounter] 12-08-2022 Episodic Other nutritional; endocrine; and metabolic disorders (2 sources) H/O: diabetes mellitus; Translations: [Personal history of other endocrine, nutritional and metabolic disease] 12-08-2022 Episodic Other screening for suspected conditions (not mental disorders or infectious disease) (1 source) Encounter for screening mammogram for malignant neoplasm of breast; Translations: [Encounter for screening mammogram for malignant neoplasm of breast] Onset: 10-22-2024 Episodic Other upper respiratory disease (8 sources) Bleeding from nose; Translations: [Epistaxis] 01-05-2020 Episodic Other upper respiratory disease (4 sources) Epistaxis; Translations: [Recurrent epistaxis] 08-22-2017 Episodic Past or Other Problems Problem Classification Problem Date Documented Da te Episodic/Chronic Urinary tract infections (1 source) Urinary tract infection, site not specified; Translations: [Urinary tract infection, site not specified] Onset: 01-13-2024 Episodic Results Test Name Value Interpretation Reference Range Facility Breast imaging reportOrdered By: Isaac Mcintyre on 10-06-2024 Study report [facility] Imaging Services [address] [place] [id number] SCRN MAMM (CAD)W/CHELSEY BILAT MR#: [id number] Acct: [id number] Name: JOHN LYNNE Rep #: [id number] : 1950 F 73 From: Ashutosh Mcintyre MD PCP: Dr. Curtis Avila MD Status: REG C LI Study:SCRN MAMM (CAD)W/CHELSEY BILAT Date of Exa m: 10/06/24 Exam# [id number] Ordering Dr: Curtis Avila MD EXAM: SCRN MAMM (CAD)W/CHELSEY BILAT DATE: 10/06/2024 CLINICAL HISTORY: F, Age 73 y/o , SCREENING No family history. TECHNIQUE: SCRN MAMM (CAD)W/CHELSEY BILAT COMPARISON: Prior exam(s) dated November 18, 2018.. FINDINGS: TISSUE DENSITY: The breasts are almost entirely fatty. Bilateral Breast Mammographic Findings: No significant masses, calcifications or other abnormalities are identified. No suspicious masses, areas of developing architectural distortion, or suspicious calcifications. There has been no significant interval change. BI/SCRN MAMM (CAD)W/CHELSEY BILAT IMPRESSION: Stable examination. OVERALL FINAL ASSESSMENT BI-RADS 1: NEGATIVE. RECOMMENDATION: Routine annual follow-up in 1 Year A letter with findings and recommendations will be mailed to the patient. Reading Location: [id number] CC: Dr. Curtis Avila MD ~ Family Dinner Service Specialist: Signed [facility] SCRN MAMM (CAD)W/CHELSEY BILATo n 10-06-2024 SCRN MAMM (CAD)W/CHELSEY BILAT [facility] Imaging Services [address] [place], [place] [address] SCRN MAMM (CAD)W/CHELSEY BILAT MR#: [id number] Acct: [id number] Name: JOHN LYNNE Rep #: [id number] : 1950 F 73 From: Isaac bertrand MD PCP: Dr. Curtis Avila MD Status: REG CLI Study: SCRN MAMM (CAD)W/CHELSEY BILAT Date of Exam: 09/09 12/03 Exam# [id number] Ordering Dr: Curtis Avila MD EXAM: SCRN MAMM (CAD)W/CHELSEY BILAT DATE: 10/06/2024 CLINICAL HISTORY: F, Age 73 y/o , SCREENING No family history. TECHNIQUE: SCRN MAMM (CAD)W/CHELSEY BILAT COMPARISON: Prior exam(s) dated November 18, 2018.. FINDINGS: TISSUE DENSITY: The breasts are almost entirely fatty. Bilateral Breast Mammographic Findings: No significant masses, calcifications or other abnormalities are identified. No suspicious masses, areas of developing architectural distortion, or suspicious calcifications. There has been no significant interval change. BI/SCRN MAMM (CAD)W/CHELSEY BILAT IMPRESSION: Stable examination. OVERALL FINAL ASSESSMENT BI-RADS 1: NEGATIVE. RECOMMENDATION: Routine annual follow-up in 1 Year A letter with findings and recommendations will be mailed to the patient. Reading Location: [id number] CC: Dr. Curtis Avila MD Family Dinner Service Specialist: Signed Normal [facility] Anion gap in Serum or Plasma Ordered By: Curtis Avila on 06-30-2024 Anion gap [Moles/Vol] 17 mmol/L High 5-15 [facility] BUN/creatinine ratioOrdered By: Curtis Avila on 06-30-2024 Urea nitrogen/Creatinine [Mass ratio] 29.1 mg/mg High 10-20 [facility] Basic Metabolic Profile (BMP )on 06-30-2024 BUN/CRE 29.1 RATIO High 10-20 [facility] Comment on above: Order Comment: MIACR E Performed By: #### L 502.0250, L500.2500, L500.4100 #### [facility] [address] [place], [place], [id number] Calcium [Mass/Vol] 10.1 mg/dL Normal 7.6-11.0 [facility] Comment on above: Order Comment: MIACR E Performed By: #### L 502.0250, L500.2500, L500.4100 #### [facility] [address] [place], [address] Chloride [Moles/Vol] 103 mmol/L Normal 98-108 [facility] Comment on above: Order Comment: MIACR E Performed By: #### L 502.0250, L500.2500, L500.4100 #### [facility] [address] [place], [address] CO2 [Moles/Vol] 21.5 mmol/L Normal 21.0-32.0 [facility] Comment on above: Order Comment: MIACR E Performed By: #### L 502.0250, L500.2500, L500.4100 #### [facility] [address] [place], [address] Creatinine [Mass/Vol] 0.87 mg/dL Normal 0.70-1.20 [facility] Comment on above: Order Comment: MIACR E Performed By: #### L 502.0250, L500.2500, L500.4100 #### [facility] [address] [place], [address] GAP 17 High 5-15 [facility] Comment on above: Order Comment: MIACR E Performed By: #### L 502.0250, L500.2500, L500.4100 #### [facility] [address] [place], [address] GFR/1.73 sq M.predicted among non-blacks MDRD (S/P/Bld) [Vol rate/Area] 70 mL/min/{1.73_m2} Normal >60 [facility] Comment on above: Order Comment: MIACR E Result Comment: mL/m in/1.73m2 CKD-EPI Creatinine Equation (2020) Performed By: #### L 502.0250, L500.2500, L500.4100 #### [facility] [address] [place], [address] Glucose [Mass/Vol] 156 mg/dL High 70-99 [facility] Comment on above: Order Comment: MIACR E Performed By: #### L 502.0250, L500.2500, L500.4100 #### [facility] [address] [place], [address] Potassium [Moles/Vol] 3.7 mmol/L Normal 3.3-5.1 [facility] Comment on above: Order Comment: MIACR E Performed By: #### L 502.0250, L500.2500, L500.4100 #### [facility] [address] [place], [address] Sodium [Moles/Vol] 141 mmol/L Normal 133-145 [facility] Comment on above: Order Comment: MIACR E Performed By: #### L 502.0250, L500.2500, L500.4100 #### [facility] [address] [place], [address] Urea nitrogen [Mass/Vol] 25 mg/dL High 4-19 [facility] Comment on above: Order Comment: MIACR E Performed By: #### L 502.0250, L500.2500, L500.4100 #### [facility] [address] [place], [address] Calculated very low density lipoprotein (VLDL) cholesterol measurementOrdered By: Curtis Avila on 06-30-2024 Calculated very low density lipoprotein (VLDL) cholesterol measurement 44 mg/dL High 5-40 [facility] Carbon dioxide, total [Moles /volume] in Central venous bloodOrdered By: Curtis Avila on 06-30-2024 CO2 [Moles/Vol] 21.5 mmol/L 21.0-32.0 [facility] Chloride assayOrdered By: Alex Avila on 06-30-2024 Chloride [Moles/Vol] 103 mmol/L 98-108 [facility] Glomerular filtration rate ( GFR) estimation/1.73 sq m using serum, plasma, or whole bOrdered By: Curtis Avila on 06-30-2024 GFR/1.73 sq M.predicted among non-blacks MDRD (S/P/Bld) [Vol rate/Area] 70 mL/min/{1.73_m2} >60 [facility] Comment on above: mL/min/1.73m2 CKD-EP I Creatinine Equation (2020) LDL calc ser/plasOrdered By: Curtis Avila on 06-30-2024 Cholesterol in LDL [Mass/Vol] 101 mg/dL [facility] Comment on above: Deukmmwfyq=632-811 m g/dL & Higher Dzgl=110 mg/dL or greater Lipid Profileon 06-30-2024 CHOL:HDL 4.61 Normal [facility] Comment on above: Performed By: #### L 502.0250, L500.2500, L500.4100 #### [facility] [address] [place], [address] Cholesterol [Mass/Vol] 185 mg/dL Normal <=200 [facility] Comment on above: Result Comment: Chol esterol level, Desirable <200 mg/dL Borderline high cholesterol 200-239 mg/dL High cholesterol >=240 mg/dL Recommendations of the NCEP Adult Treatment Panel for the following risk-cutoff thresholds for the [place] population. Performed By: #### L 502.0250, L500.2500, L500.4100 #### [facility] [address] [place], [address] Cholesterol in HDL [Mass/Vol] 40 mg/dL Normal [facility] Comment on above: Result Comment: Geovanna onal Cholesterol Education Program (NCEP) guidelines: <40 mg/dL: Low HDL-cholesterol (major risk factor for CHD) >= 60 mg/dL: High HDL-cholesterol (negative risk factor for CHD) HDL-cholesterol is affected by a number of factors, e.g. smoking, exercise, hormones, sex and age. Performed By: #### L 502.0250, L500.2500, L500.4100 #### [facility] [address] [place], [address] Cholesterol in LDL [Mass/Vol] 101 mg/dL Normal [facility] Comment on above: Result Comment: Bord uflvcy=542-329 mg/dL Higher Runu=347 mg/dL or greater Performed By: #### L 502.0250, L500.2500, L500.4100 #### [facility] [address] [place], [address] Cholesterol in VLDL [Mass/Vol] 44 mg/dL High 5-40 [facility] Comment on above: Performed By: #### L 502.0250, L500.2500, L500.4100 #### [facility] [address] [place], [address] Triglyceride [Mass/Vol] 218 mg/dL High [facility] Comment on above: Result Comment: The drugs N-Acetylcysteine and Metamizole may falsely depress this assay. Normal range: <150 mg/dL Borderline High: 150-199 mg/dL High: 200-499 mg/dL Very High: >500 mg/dL Performed By: #### L 502.0250, L500.2500, L500.4100 #### [facility] [address] [place], [address] Microalb:Creat Ratio,Random URon 06-30-2024 Creatinine [Mass/Vol] 48.80 mg/dL Normal 28.00-217.00 [facility] Comment on above: Performed By: #### L 502.0250, L500.2500, L500.4100 #### [facility] [address] [place], [address] MALB:CREAT UNABLE TO CALCULATE Normal [facility] Comment on above: Performed By: #### L 502.0250, L500.2500, L500.4100 #### [facility] [address] [place], [address] MICROALBUMIN,UR < 12.0 Normal NO RANGE EST. [facility] Comment on above: Performed By: #### L 502.0250, L500.2500, L500.4100 #### [facility] [place], [address] Microalbumin/creat ratio urO rdered By: Curtis Avila on 06-30-2024 Urine microalbumin/creatinine ratio measurement UNABLE TO CALCULATE mg/g CRE [facility] Potassium measurement (mass/ volume)Ordered By: Curtis Avila on 06-30-2024 Potassium (Unsp spec) [Mass/Vol] 3.7 mmol/L 3.3-5.1 [facility] Random urine creatinine samantha urement (mass/volume)Ordered By: Curtis Avila on 06-30-2024 Creatinine Unsp time (U) [Mass/Vol] 48.80 mg/dL 28.00-217.00 [facility] Screening total cholesterol/ high density lipoprotein (HDL) cholesterol ratioOrdered By: Curtis Avila on 06-30-2024 Cholesterol.total/Vonda sterol in HDL [Mass ratio] 4.61 {ratio} [facility] Serum creatinine measurement (mass/volume)Ordered By: Curtis Avila on 06-30-2024 Creatinine [Mass/Vol] 0.87 mg/dL 0.70-1.20 [facility] Serum glucose measurement (m ass/volume)Ordered By: Curtis Avila on 06-30-2024 Glucose [Mass/Vol] 156 mg/dL High 70-99 [facility] Serum or plasma calcium samantha urement (mass/volume)Ordered By: Curtis Avila on 06-30-2024 Calcium [Mass/Vol] 10.1 mg/dL 7.6-11.0 [facility] Serum or plasma cholesterol in HDL measurement (mass/volume)Ordered By: Curtis Avila on 06-30-2024 Cholesterol in HDL [Mass/Vol] 40 mg/dL >40 [facility] Comment on above: National Cholesterol Education Program (NCEP) guidelines:<40 mg/dL: Low HDL-cholesterol (major risk factor for CHD)>= 60 mg/dL: High HDL-cholesterol (negative risk factor for CHD)HDL-cholesterol is affected by a number of factors, e.g. smoking, exercise, hormones, sex and age. Serum or plasma cholesterol measurement (mass/volume)Ordered By: Curtis Avila on 06-30-2024 Cholesterol [Mass/Vol] 185 mg/dL <201 [facility] Comment on above: Cholesterol level, D esirable <200 mg/dLBorderline high cholesterol 200-239 mg/dLHigh cholesterol >=240 mg/dLRecommendations of the NCEP Adult Treatment Panel for the following risk-cutoff thresholds for the [place] population. Serum or plasma urea nitroge n measurement (mass/volume)Ordered By: Curtis Avila on 06-30-2024 Urea nitrogen [Mass/Vol] 25 mg/dL High 4-19 [facility] Sodium levelOrdered By: Curtis Avila on 06-30-2024 Sodium [Moles/Vol] 141 mmol/L 133-145 [facility] Triglycerides measurementOrd ered By: Curtis Avila on 06-30-2024 Triglyceride [Mass/Vol] 218 mg/dL High <199 [facility] Comment on above: The drugs N-Acetylcy steine and Metamizole may falsely depress this assay. Normal range: <150 mg/dLBorderline High: 150-199 mg/dLHigh: 200-499 mg/dLVery High: >500 mg/dL Urine albumin measurement wi th detection limit of 20 mg/L or less (mass/volume)Ordered By: Curtis Avila on 06-30-2024 Albumin DL <= 20 mg/L (U) [Mass/Vol] < 12.0 mg/L NO RANGE EST. [facility] Urine Cultureon 12-20-2023 [facility] Copy of report sent to Infection Control Printer [id number] 12/19/23 0960 KEN. Urine Culture RESULTS CALLED TO Rob MERCHANT 12/19/23 0951 Shanika Victoria. REPORT READ BACK BY . Escherichia coli [place] Count >100,000 Escherichia coli: REACTION Amikacin Islt [...] S Cefuroxime Islt ELEAZAR 16 I Normal [facility] Comment on above: Performed By: #### M 100.2200 #### [facility] [address] [place], [address] Urine Cultureon 12-18-2023 [facility] UNABLE TO CHANGE SOURCE FROM INTERFACE TO CLEAN CATCH. SEE NEW ORDER FOR RESULTS. Order Date: 12/17/23 Order Info: 630-4 - [facility] Comments: uti Urine Culture Normal [facility] Comment on above: Performed By: #### M 100.2200 #### [facility] [address] [place], [address] Basophil percentageOrdered B y: Curtis Avila on 11-21-2022 Chloride [Moles/Vol] 107 mmol/L 98-107 [facility] Cholesterol [Mass/Vol] 169 mg/dL <200 [facility] Comment on above: <200 mg/dL Desirable 200-240 mg/dL Borderline >240 mg/dL High Risk Glucose [Mass/Vol] 129 mg/dL 74-106 [facility] Comment on above: Fasting Glucose resu lt greater than or equal to 126 mg/dL suggests DIABETES MELLITUS per A.D.A. criteria. Potassium [Moles/Vol] 4.3 mmol/L 3.5-5.1 [facility] Sodium [Moles/Vol] 140 mmol/L 136-145 [facility] Triglyceride [Mass/Vol] 169 mg/dL <199 [facility] Comment on above: The drugs N-Acetylcy steine and Metamizole may falsely depress this assay.Serum Triglycerides Reference Interval Normal <150 mg/dL Borderline high 150 - 199 mg/dL High 200 - 499 mg/dL Very High > or = 500 mg/dL Laboratory - Chemistry and C hemistry - challengeOrdered By: uCrtis Avila on 11-21-2022 CO2 [Moles/Vol] 26.0 mmol/L 21.0-32.0 [facility] Urea nitrogen/Creatinine [Mass ratio] 22.8 mg/mg 10-20 [facility] No Panel InformationOrdered By: Curtis Avila on 11-21-2022 Estimated GFR (MDRD) Amer 82 mL/min >60 [facility] Comment on above: GFR Calc Estimated GFR (MDRD) Non-Af Amer 68 mL/min >60 [facility] Comment on above: Non- GFR Calc Urine Microalbumin/Creatinine Ratio 13.4 mg/g CRE <30 [facility] Serum or plasma calcium samantha urement (mass/volume)Ordered By: Curtis Avila on 11-21-2022 Calcium [Mass/Vol] 9.6 mg/dL 8.5-10.1 [facility] Serum or plasma cholesterol in HDL measurement (mass/volume)Ordered By: Curtis Avila on 11-21-2022 Cholesterol in HDL [Mass/Vol] 40 mg/dL >40 [facility] Comment on above: The drugs N-Acetylcy steine and Metamizole may falsely depress this assay. Reference Range HDL <40 mg/dL Low HDL Cholesterol HDL >or= 60 mg/dL High HDL Cholesterol Serum or plasma cholesterol in VLDL measurement (mass/volume)Ordered By: Curtis Avila on 11-21-2022 Cholesterol in VLDL [Mass/Vol] 34 mg/dL 5-40 [facility] Serum or plasma creatinine m easurement (mass/volume)Ordered By: Curtis Avila on 11-21-2022 Creatinine [Mass/Vol] 0.88 mg/dL 0.55-1.02 [facility] Comment on above: The validity of the calculated GFR & GFRAA in patients over 70 years has not been determined. Clinical correlation is essential. Serum or plasma low density lipoprotein (LDL) cholesterol measurement (mass/volume)Ordered By: Curtis Avila on 11-21-2022 Cholesterol in LDL [Mass/Vol] 95 mg/dL 0-130 [facility] Serum or plasma urea nitroge n measurement (mass/volume)Ordered By: Curtis Avila on 11-21-2022 Urea nitrogen [Mass/Vol] 20 mg/dL 7-18 [facility] Thin prep Papanicolaou smear with manual screeningOrdered By: Curtis Avila on 11-21-2022 Thin prep Papanicolaou smear with manual screening 7 5-15 [facility] Thin prep Papanicolaou smear with manual screening 7.1 mg/L NO RANGE EST. [facility] Urine creatinine measurement (mass/volume)Ordered By: Curtis Avila on 11-21-2022 Creatinine (U) [Mass/Vol] 52.80 mg/dL NO RANGE EST. [facility] Basophil percentageon 2021 Chloride [Moles/Vol] 107 mmol/L 98-107 [facility] Work Phone: Cholesterol [Mass/Vol] 174 mg/dL <200 [facility] Work Phone: Comment on above: <200 mg/dL Desirable 200-240 mg/dL Borderline >240 mg/dL High Risk Glucose [Mass/Vol] 154 mg/dL 74-106 [facility] Work Phone: Comment on above: Fasting Glucose resu lt greater than or equal to 126 mg/dL suggests DIABETES MELLITUS per A.D.A. criteria. Potassium [Moles/Vol] 4.3 mmol/L 3.5-5.1 [facility] Work Phone: Sodium [Moles/Vol] 141 mmol/L 136-145 [facility] Work Phone: Triglyceride [Mass/Vol] 217 mg/dL <199 [facility] Work Phone: Comment on above: The drugs N-Acetylcy steine and Metamizole may falsely depress this assay.Serum Triglycerides Reference Interval Normal <150 mg/dL Borderline high 150 - 199 mg/dL High 200 - 499 mg/dL Very High > or = 500 mg/dL Laboratory - Chemistry and C hemistry - challengeon 02-27-2022 CO2 [Moles/Vol] 25.0 mmol/L 21.0-32.0 [facility] Work Phone: Urea nitrogen/Creatinine [Mass ratio] 20.3 mg/mg - [facility] Work Phone: No Panel Informationon 02-27 Estimated GFR (MDRD) Amer 86 mL/min >60 [facility] Work Phone: Comment on above: GFR Calc Estimated GFR (MDRD) Non-Af Amer 71 mL/min >60 [facility] Work Phone: Comment on above: Non- GFR Calc Urine Microalbumin/Creatinine Ratio 19.9 mg/g CRE <30 [facility] Work Phone: Serum or plasma calcium samantha urement (mass/volume)on 02-27-2022 Calcium [Mass/Vol] 9.4 mg/dL 8.5-10.1 [facility] Work Phone: Serum or plasma cholesterol in HDL measurement (mass/volume)on 02-27-2022 Cholesterol in HDL [Mass/Vol] 38 mg/dL >40 [facility] Work Phone: Comment on above: The drugs N-Acetylcy steine and Metamizole may falsely depress this assay. Reference Range HDL <40 mg/dL Low HDL Cholesterol HDL >or= 60 mg/dL High HDL Cholesterol Serum or plasma cholesterol in VLDL measurement (mass/volume)on 02-27-2022 Cholesterol in VLDL [Mass/Vol] 43 mg/dL 5-40 [facility] Work Phone: Serum or plasma creatinine m easurement (mass/volume)on 02-27-2022 Creatinine [Mass/Vol] 0.84 mg/dL 0.55-1.02 [facility] Work Phone: Comment on above: The validity of the calculated GFR & GFRAA in patients over 70 years has not been determined. Clinical correlation is essential. Serum or plasma low density lipoprotein (LDL) cholesterol measurement (mass/volume)on 02-27-2022 Cholesterol in LDL [Mass/Vol] 93 mg/dL 0-130 [facility] Work Phone: Serum or plasma urea nitroge n measurement (mass/volume)on 02-27-2022 Urea nitrogen [Mass/Vol] 17 mg/dL 7-18 [facility] Work Phone: Thin prep Papanicolaou smear with manual screeningon 02-27-2022 Thin prep Papanicolaou smear with manual screening 9 5-15 [facility] Work Phone: Thin prep Papanicolaou smear with manual screening 11.0 mg/L NO RANGE EST. [facility] Work Phone: Urine creatinine measurement (mass/volume)on 02-27-2022 Creatinine (U) [Mass/Vol] 55.40 mg/dL NO RANGE EST. [facility] Work Phone: Basophil percentageon 2021 Bilirubin [Mass/Vol] 0.70 mg/dL 0.20-1.00 [facility] Work Phone: Comment on above: For patients on eltr ombopag therapy, use of Dimension [place] TBIL is not recommended. Chloride [Moles/Vol] 107 mmol/L 98-107 [facility] Work Phone: Cholesterol [Mass/Vol] 166 mg/dL <200 [facility] Work Phone: Comment on above: <200 mg/dL Desirable 200-240 mg/dL Borderline >240 mg/dL High Risk Glucose [Mass/Vol] 160 mg/dL 74-106 [facility] Work Phone: Comment on above: Fasting Glucose resu lt greater than or equal to 126 mg/dL suggests DIABETES MELLITUS per A.D.A. criteria. Potassium [Moles/Vol] 4.2 mmol/L 3.5-5.1 [facility] Work Phone: Protein [Mass/Vol] 7.6 g/dL 6.4-8.2 [facility] Work Phone: Sodium [Moles/Vol] 137 mmol/L 136-145 [facility] Work Phone: Triglyceride [Mass/Vol] 159 mg/dL [facility] Work Phone: Comment on above: The drugs N-Acetylcy steine and Metamizole may falsely depress this assay.Serum Triglycerides Reference Interval Normal <150 mg/dL Borderline high 150 - 199 mg/dL High 200 - 499 mg/dL Very High > or = 500 mg/dL Laboratory - Chemistry and C hemistry - challengeon 08-11-2021 ALP [Catalytic activity/Vol] 133 U/L 45-117 [facility] Work Phone: ALT [Catalytic activity/Vol] 20 U/L 13-56 [facility] Work Phone: CO2 [Moles/Vol] 21.0 mmol/L 21.0-32.0 [facility] Work Phone: Globulin (S) [Mass/Vol] 3.8 g/dL 2.2-4.2 [facility] Work Phone: Urea nitrogen/Creatinine [Mass ratio] 23.3 mg/mg 10-20 [facility] Work Phone: No Panel Informationon 08-11 Estimated GFR (MDRD) Amer 79 mL/min >60 [facility] Work Phone: Comment on above: GFR Calc Estimated GFR (MDRD) Non-Af Amer 65 mL/min >60 [facility] Work Phone: Comment on above: Non- GFR Calc Serum or plasma albumin samantha urement (mass/volume)on 08-11-2021 Albumin [Mass/Vol] 3.8 g/dL 3.2-5.0 [facility] Work Phone: Serum or plasma albumin/glob ulin mass ratioon 08-11-2021 Albumin/Globulin [Mass ratio] 1.0 {ratio} 0.9-2.4 [facility] Work Phone: Serum or plasma calcium samantha urement (mass/volume)on 08-11-2021 Calcium [Mass/Vol] 9.5 mg/dL 8.5-10.1 [facility] Work Phone: Serum or plasma cholesterol in HDL measurement (mass/volume)on 08-11-2021 Cholesterol in HDL [Mass/Vol] 41 mg/dL [facility] Work Phone: Comment on above: The drugs N-Acetylcy steine and Metamizole may falsely depress this assay. Reference Range HDL <40 mg/dL Low HDL Cholesterol HDL >or= 60 mg/dL High HDL Cholesterol Serum or plasma cholesterol in VLDL measurement (mass/volume)on 08-11-2021 Cholesterol in VLDL [Mass/Vol] 32 mg/dL 5-40 [facility] Work Phone: Serum or plasma creatinine m easurement (mass/volume)on 08-11-2021 Creatinine [Mass/Vol] 0.90 mg/dL 0.55-1.02 [facility] Work Phone: Comment on above: The validity of the calculated GFR & GFRAA in patients over 70 years has not been determined. Clinical correlation is essential. Serum or plasma low density lipoprotein (LDL) cholesterol measurement (mass/volume)on 08-11-2021 Cholesterol in LDL [Mass/Vol] 93 mg/dL 0-130 [facility] Work Phone: Serum or plasma urea nitroge n measurement (mass/volume)on 08-11-2021 Urea nitrogen [Mass/Vol] 21 mg/dL 7-18 [facility] Work Phone: Thin prep Papanicolaou smear with manual screeningon 08-11-2021 Thin prep Papanicolaou smear with manual screening 15 U/L 15-37 [facility] Work Phone: Thin prep Papanicolaou smear with manual screening 9 5-15 [facility] Work Phone: Whole blood hemoglobin A1c/t otal hemoglobin ratio (mass fraction)on 08-11-2021 HbA1c (Bld) [Mass fraction] 6.7 % 3.8-5.6 [facility] Work Phone: Comment on above: Normal < 5.7 % Predi abetic 5.7 - 6.4 % Diabetic >or= 6.5 % Please note range changes. Laboratory - Microbiology an d Antimicrobial susceptibilityon 05-01-2021 SARS-CoV-2 (COVID-19) RNA ZAIRA+probe Ql (Unsp spec) Not detected Not Detect [facility] Work Phone: Comment on above: Normal Reference [...] Date Time Vital Sign Value Performing Clinician Faci lity 12-08-2022 08:00-0400 Body temperature 97.6 [degF] [facility] 12-08-2022 08:00-0400 Diastolic blood pressure 78 mm[Hg] [facility] 12-08-2022 08:00-0400 Heart rate 64 /min [facility] 12-08-2022 08:00-0400 Respiratory rate 14 /min [facility] 12-08-2022 08:00-0400 SaO2% (BldA) [Mass fraction] 99 % [facility] 12-08-2022 08:00-0400 Systolic blood pressure 145 mm[Hg] [facility] 12-08-2022 03:17-0400 Body height 147.32 cm [facility] 07-22-2021 01:35-0400 Diastolic blood pressure 76 mm[Hg] [facility] Work Phone: 07-22-2021 01:35-0400 Heart rate 68 /min [facility] Work Phone: 07-22-2021 01:35-0400 Respiratory rate 16 /min [facility] Work Phone: 07-22-2021 01:35-0400 SaO2% (BldA) [Mass fraction] 98 % [facility] Work Phone: 07-22-2021 01:35-0400 Systolic blood pressure 126 mm[Hg] [facility] Work Phone: 07-21-2021 21:47-0400 Body height 149.86 cm [facility] Work Phone: 07-21-2021 21:47-0400 Body mass index (BMI) [Ratio] 32.3 kg/m2 [facility] Work Phone: 07-21-2021 21:47-0400 Body temperature 96.8 [degF] [facility] Work Phone: 07-21-2021 21:47-0400 Body weight 72.57 kg [facility] Work Phone: Encounters Encounter Date Encounter Type Care Provider Facility Start: 10-06-2024 End: 10-06-[address] Curtis Avila MD Work Phone: -Outpatient Breast Imaging Start: 10-06-2024 End: 10-06-[address] Curtis Avila MD -Outpatient Breast Imaging Work Phone: Start: 10-06-2024 End: 10-06-2024 ambulatory Curtis Avila Facility:[facility] Start: 06-30-2024 End: 06-30-[address] Curtis Avila MD -Laboratory [facility] Start: 06-30-2024 End: 06-30-2024 ambulatory Curtis Avila Facility:[facility] Start: 12-17-2023 End: 12-17-2023 ambulatory Curtis Avila Facility:[facility] Start: 12-08-2022 End: 12-08-2022 Emergency department patient visit [facility] Work Phone: Start: 11-21-2022 End: 11-21-2022 ambulatory [facility] Work Phone: Start: 11-21-2022 End: 11-21-2022 Patient encounter procedure [facility] Start: 02-27-2022 End: 02-27-2022 ambulatory [facility] Work Phone: Start: 02-27-2022 End: 02-27-2022 Patient encounter procedure [facility] Start: 08-11-2021 End: 08-11-2021 Patient encounter procedure [facility] Start: 07-21-2021 End: 07-22-2021 [facility] Start: 05-01-2021 End: 05-01-2021 [facility] Date Procedure Procedure Detail Performing Clinician Start: 10-06-2024 Screening mammography D matilde Avila MD Work Phone: Plan of Treatment Date Care Activity Detail Author Patient Education [facility] Work Phone: Patient referral [facility] Work Phone: Immunizations Immunization Date Immunization Notes Care Provider Juanito ro 02-29-2016 tetanus and diphther ia toxoids, adsorbed, preservative free, for adult use (2 Lf of tetanus toxoid and 2 Lf of diphtheria toxoid) [facility] Payers Date Payer Category Payer Self-pay [id number] 2023 Unknown [id number] 2010 Medicare [id number] Private Health Insurance [facility] [id number] Unknown [facility] [id number] a Unknown [id number] Unknown [id number] Unknown [id number] Social History Date Type Detail Facility Start: 07-21-2021 End: 12-08-2022 Tobacco smoking status NHIS Unknown if ever smoked [facility] Start: 1950 Sex Assigned At Female [facility] Start: 12-08-2022 Tobacco smoking stat us NHIS Never smoked tobacco (finding) [facility] Mental Status Date Assessment Result Facility 12-08-2022 Cognitive function Level Of Cons ciousness Awake;Alert;Appropriate;Follow s Commands [facility] Work Phone: Discharge summary 12-08-2022 Note Date & Type Note Facility 12-08-2022 Discharge summary Note Date/Time December 08, 2022 3:30am [facility] Records Department [address] [place] [address] Emergency Department Summary 12/08/22 MR#: [id number] Acct: [id number] Name: JOHN LYNNE Rep #:[id number] : 1950 72 From: Manuel Plasencia PCP: [...] PO DAILY 12/08/22 [History Last Taken Unknown] [id number] 8 mg-folic 400 mcg-K 50 mcg-lutein 300 [...] tongue involvement. IV TXA ordered. 0438: TXA skilled nursing infused, patient starting to feel some improvement. 0500: Objectively swelling continuing to improve at this time. 0800: Multiple reevaluations swelling upper lip resolved. Patient discharged outpatient follow-up with return precautions. All questions were answered. Re-evaluation: stable Disposition discussed with patient/family/significant other: Patient Case discussed with consulting clinician: N/A This note was generated with [employer] software. It may contain incorrect words, spelling, and punctuation that were not noted in checking the note before signing. Critical Care Time Critical Care Time: Yes Critical care time (excluding procedures): 30-74 minutes, Discussing w/Patient &/or Family/Floor Technician, Discussing w/Consultants, Performing Direct Patient Care at [...] your Primary Care Provider. Call [facility] ([phone]) or report to the closest Emergency Room. Call 911 if necessary. 12/08/22 0807 <Electronically signed by Manuel Plasencia> Cosigner Signature (if applicable): CC: Dr. Curtis Avila MD ~ Signed [facility] Work Phone: Evaluation note Note Date & Type Note Facility Evaluation note No assessment information availa ble [facility] Work Phone: Hospital Discharge instructions Note Date & Type Note Facility Hospital Discharge instructions Additional Instructions stop your ramipril. Status post TXA in the emergency department. No improvement with allergy medications. Follow-up with your doctor. Return if worsening or recurrent symptoms. [facility] Work Phone: Reason for referral (narrative) Note Date & Type Note Facility Reason for referral (narrative) No reason for referral information available [facility] Work Phone: Chief Complaint and Reason for Visit Chief Complaint NOSEBLEED Chief Complaint facial edema Chief Complaint Admit Date SCREENING October 06, 2024 12:2 7pm Advance Directives No Advanced Directives Records Found Advance Directive Response Recorded Date/ Time Advance Directives No February 10:24pm Living Will No July 21, 2021 9 :53pm Power of Side Stapler No July 21, 2021 9:53pm Advance Directive Response Recorded Date/ Time Advance Directives No February 9:24pm Living Will No July 21, 2021 8 :53pm Power of Side Stapler No July 21, 2021 8:53pm Advance Directive Response Recorded Date/ Time Advance Directives No February 10:24pm Living Will No December 08, 2022 3:21am Power of Side Stapler No November 3:21am Advance Directive Response Recorded Date/ Time Advance Directives No February 10:24pm Summary Purpose Family History No Family History [...] MD Primary Care Provider, Attending Provider Active Team Status: Active Member Role/Relationship Status Dates Dr. Curtis Avila MD Primary Care Provider Active Team Status: Inactive Member Role/Relationship Status Dates Dr. Curtis Avila MD Primary Care Provider Active Start: June 30, 2024 End: June 30, 2024 Dr. Curtis Avila MD Attending Provider Active Start: June 30, 2024 End: June 30, 2024 Dr. Curtis Avila MD Referring Provider Active Start: June 30, 2024 End: June 30, 2024 Team Status: Inactive Member Role/Relationship Status Dates Dr. Curtis Avila MD Primary Care Provider Active Start: October 06, 2024 End: October 06, 2024 Dr. Curtis Avila MD Attending Provider Active Start: October 06, 2024 End: October 06, 2024 Dr. Curtis Avila MD Referring Provider Active Start: October 06, 2024 End: October 06, 2024 INFORMATION SOURCE (unrecogn ized section and content) DATE CREATED AUTHOR 10/24/2024 [facility] FOR RECORDS PERTAINING TO PATIENTS WHO ARE [...] BE BASED ON THE PRIMARY CLINICAL RECORDS. [employer] provides no warranty or guarantee of the accuracy or completeness of information in this document.
--- OUTSIDE RECORDS SUMMARY | 2024-12-31 16:48 | XMS RPT_ITS | CCD ---
Author Organization [facility] Care Team Providers Care Making Machine Catcher Name Role Phone Margarita RICK, Dr. Acevedo Primary Care Provider Margarita RICK, Dr. Acevedo Attending Provider Margarita RICK, Dr. Acevedo Referring Provider Curtis Avila Attending Unavailable Margarita, Curtis Primary Care Unavailable Margarita, Curtis Referring Unavailable Margarita, Curtis Attending Unavailable Margarita, Curtis Primary Care Unavailable Margarita, Curtis Referring Unavailable Margarita, Curtis Attending Unavailable Margarita, Curtis Primary Care Unavailable Margarita, Curtis Referring Unavailable Allergies Allergy Classification Reported Allergen(s) Allergy Type Date of Onset Reaction(s) Facility (7 sources) Penicillins; Translations: [Penicillins] Allergy to substance 08-21-2017 Hives [facility] (2 sources) Ramipril Drug Allergy 12-08-2022 Angioedema [facility] Comment on above: upper lip (1 source) Ramipril Drug Allergy 12-08-2022 [facility] Repository Medications Current Medications Medication Drug [...] Start: 08-20-2017 take 1 capsule by mo [facility] at bedtime Diltiazem Hcl Active [...] TWICE A DAY August 20, 2017 12:00am Jmjatokk-Qhg-Llrn-F a-Vit K-Lut (Multivitamin Women 50 Plus) 8 mg iron-400 mcg-50 mcg tablet (2 sources) Start: 12-08-2022 take 1 tablet by mouth once daily Jokdtoxj-Sdt-Hsxe-F a-Vit K-Lut (Multivitamin Women 50 Plus) 8 mg iron-400 mcg-50 mcg tablet Active 1 {tbl} PO DAILY December 08, 2022 12:00am Start: 12-08-2022 take 1 tablet by [facility] once daily Ytuathcv-Ctc-Tohu-Fa-Vit K-Lut (Multivitamin Women 50 Plus) 8 mg [...] By: Isaac Mcintyre on 10-06-2024 Study report [facility] Imaging Services [address] [place] [id number] SCRN MAMM (CAD)W/CHELSEY BILAT MR#: [id number] Acct: [id number] Name: JOHN LYNNE Rep #: [id number] : 1950 F 73 From: Ashutosh Mcintyre MD PCP: Dr. Curtis Avila MD Status: REG C LI Study:SCRN MAMM (CAD)W/CHELSEY BILAT Date of Exa m: 10/06/24 Exam# [id number] Ordering Dr: Curtis Avila MD EXAM: SCRN [...] be mailed to the patient. Reading Location: [id number] CC: Dr. Curtis Avila MD ~ Plant And Instrument Engineer: Signed [facility] SCRN MAMM (CAD)W/CHELSEY BILATo n 10-06-2024 SCRN MAMM (CAD)W/CHELSEY BILAT [facility] Imaging Services [address] [place], [place] [id number] SCRN MAMM (CAD)W/CHELSEY BILAT MR#: [id number] Acct: [id number] Name: JOHN LYNNE Rep #: [id number] : 1950 F 73 From: Isaac bertrand MD PCP: Dr. Curtis Avila MD Status: REG CLI Study: SCRN MAMM (CAD)W/CHELSEY BILAT Date of Exam: 09/09 12/03 Exam# [id number] Ordering Dr: Curtis Avila MD EXAM: SCRN [...] be mailed to the patient. Reading Location: [id number] CC: Dr. Curtis Avila MD Plant And Instrument Engineer: Signed Normal [facility] Anion gap in Serum or Plasma Ordered By: Curtis Avila on 06-30-2024 Anion gap [Moles/Vol] 17 mmol/L High 5-15 [facility] BUN/creatinine ratioOrdered By: Curtis Avila on 06-30-2024 Urea nitrogen/Creatinine [Mass ratio] 29.1 mg/mg High 10-20 [facility] Basic Metabolic Profile (BMP )on 06-30-2024 BUN/CRE 29.1 RATIO High 10-20 [facility] Comment on above: Order Comment: MIACR E Performed By: #### L 502.0250, L500.2500, L500.4100 #### [facility] [address] [place], [place], [id number] Calcium [Mass/Vol] 10.1 mg/dL Normal 7.6-11.0 [facility] Comment on above: Order Comment: MIACR E Performed By: #### L 502.0250, L500.2500, L500.4100 #### [facility] [address] [place], [address] Chloride [Moles/Vol] 103 mmol/L Normal 98-108 [facility] Comment on above: Order Comment: MIACR E Performed By: #### L 502.0250, L500.2500, L500.4100 #### [facility] [address] [place], [address] CO2 [Moles/Vol] 21.5 mmol/L Normal 21.0-32.0 [facility] Comment on above: Order Comment: MIACR E Performed By: #### L 502.0250, L500.2500, L500.4100 #### [facility] [address] [place], [address] Creatinine [Mass/Vol] 0.87 mg/dL Normal 0.70-1.20 [facility] Comment on above: Order Comment: MIACR E Performed By: #### L 502.0250, L500.2500, L500.4100 #### [facility] [address] [place], [address] GAP 17 High 5-15 [facility] Comment on above: Order Comment: MIACR E Performed By: #### L 502.0250, L500.2500, L500.4100 #### [facility] [address] [place], [address] GFR/1.73 sq M.predicted among non-blacks MDRD (S/P/Bld) [Vol rate/Area] 70 mL/min/{1.73_m2} Normal >60 [facility] Comment on above: Order Comment: MIACR E Result Comment: mL/m in/1.73m2 CKD-EPI Creatinine Equation (2020) Performed By: #### L 502.0250, L500.2500, L500.4100 #### [facility] [address] [place], [address] Glucose [Mass/Vol] 156 mg/dL High 70-99 [facility] Comment on above: Order Comment: MIACR E Performed By: #### L 502.0250, L500.2500, L500.4100 #### [facility] [address] [place], [address] Potassium [Moles/Vol] 3.7 mmol/L Normal 3.3-5.1 [facility] Comment on above: Order Comment: MIACR E Performed By: #### L 502.0250, L500.2500, L500.4100 #### [facility] [address] [place], [address] Sodium [Moles/Vol] 141 mmol/L Normal 133-145 [facility] Comment on above: Order Comment: MIACR E Performed By: #### L 502.0250, L500.2500, L500.4100 #### [facility] [address] [place], [address] Urea nitrogen [Mass/Vol] 25 mg/dL High 4-19 [facility] Comment on above: Order Comment: MIACR E Performed By: #### L 502.0250, L500.2500, L500.4100 #### [facility] [address] [place], [address] Calculated very low density lipoprotein (VLDL) cholesterol measurementOrdered By: Curtis Avila on 06-30-2024 Calculated very low density lipoprotein (VLDL) cholesterol measurement 44 mg/dL High 5-40 [facility] Carbon dioxide, total [Moles /volume] in Central venous bloodOrdered By: Curtis Avila on 06-30-2024 CO2 [Moles/Vol] 21.5 mmol/L 21.0-32.0 [facility] Chloride assayOrdered By: Alex Avila on 06-30-2024 Chloride [Moles/Vol] 103 mmol/L 98-108 [facility] Glomerular filtration rate ( GFR) estimation/1.73 sq m using serum, plasma, or whole bOrdered By: Curtis Avila on 06-30-2024 GFR/1.73 sq M.predicted among non-blacks MDRD (S/P/Bld) [Vol rate/Area] 70 mL/min/{1.73_m2} >60 [facility] Comment on above: mL/min/1.73m2 CKD-EP I Creatinine Equation (2020) LDL calc ser/plasOrdered By: Curtis Avila on 06-30-2024 Cholesterol in LDL [Mass/Vol] 101 mg/dL [facility] Comment on above: Zazwfgocaq=680-342 m g/dL & Higher Awrd=445 mg/dL or greater Lipid Profileon 06-30-2024 CHOL:HDL 4.61 Normal [facility] Comment on above: Performed By: #### L 502.0250, L500.2500, L500.4100 #### [facility] [address] [place], [address] Cholesterol [Mass/Vol] 185 mg/dL Normal <=200 [facility] Comment on above: Result Comment: Chol esterol level, Desirable <200 mg/dL Borderline high cholesterol 200-239 mg/dL High cholesterol >=240 mg/dL Recommendations of the NCEP Adult Treatment Panel for the following risk-cutoff thresholds for the [place] population. Performed By: #### L 502.0250, L500.2500, L500.4100 #### [facility] [address] [place], [address] Cholesterol in HDL [Mass/Vol] 40 mg/dL Normal [facility] Comment on above: Result Comment: Geovanna onal Cholesterol Education Program (NCEP) guidelines: <40 mg/dL: Low HDL-cholesterol (major risk factor for CHD) >= 60 mg/dL: High HDL-cholesterol (negative risk factor for CHD) HDL-cholesterol is affected by a number of factors, e.g. smoking, exercise, hormones, sex and age. Performed By: #### L 502.0250, L500.2500, L500.4100 #### [facility] [address] [place], [address] Cholesterol in LDL [Mass/Vol] 101 mg/dL Normal [facility] Comment on above: Result Comment: Bord fnzdpa=761-952 mg/dL Higher Euos=069 mg/dL or greater Performed By: #### L 502.0250, L500.2500, L500.4100 #### [facility] [address] [place], [address] Cholesterol in VLDL [Mass/Vol] 44 mg/dL High 5-40 [facility] Comment on above: Performed By: #### L 502.0250, L500.2500, L500.4100 #### [facility] [address] [place], [address] Triglyceride [Mass/Vol] 218 mg/dL High [facility] Comment on above: Result Comment: The drugs N-Acetylcysteine and Metamizole may falsely depress this assay. Normal range: <150 mg/dL Borderline High: 150-199 mg/dL High: 200-499 mg/dL Very High: >500 mg/dL Performed By: #### L 502.0250, L500.2500, L500.4100 #### [facility] [address] [place], [address] Microalb:Creat Ratio,Random URon 06-30-2024 Creatinine [Mass/Vol] 48.80 mg/dL Normal 28.00-217.00 [facility] Comment on above: Performed By: #### L 502.0250, L500.2500, L500.4100 #### [facility] [address] [place], [address] MALB:CREAT UNABLE TO CALCULATE Normal [facility] Comment on above: Performed By: #### L 502.0250, L500.2500, L500.4100 #### [facility] [address] [place], [address] MICROALBUMIN,UR < 12.0 Normal NO RANGE EST. [facility] Comment on above: Performed By: #### L 502.0250, L500.2500, L500.4100 #### [facility] [place], [address] Microalbumin/creat ratio urO rdered By: Curtis Avila on 06-30-2024 Urine microalbumin/creatinine ratio measurement UNABLE TO CALCULATE mg/g CRE [facility] Potassium measurement (mass/ volume)Ordered By: Curtis Avila on 06-30-2024 Potassium (Unsp spec) [Mass/Vol] 3.7 mmol/L 3.3-5.1 [facility] Random urine creatinine samantha urement (mass/volume)Ordered By: Curtis Avila on 06-30-2024 Creatinine Unsp time (U) [Mass/Vol] 48.80 mg/dL 28.00-217.00 [facility] Screening total cholesterol/ high density lipoprotein (HDL) cholesterol ratioOrdered By: Curtis Avila on 06-30-2024 Cholesterol.total/Vonda sterol in HDL [Mass ratio] 4.61 {ratio} [facility] Serum creatinine measurement (mass/volume)Ordered By: Curtis Avila on 06-30-2024 Creatinine [Mass/Vol] 0.87 mg/dL 0.70-1.20 [facility] Serum glucose measurement (m ass/volume)Ordered By: Curtis Avila on 06-30-2024 Glucose [Mass/Vol] 156 mg/dL High 70-99 [facility] Serum or plasma calcium samantha urement (mass/volume)Ordered By: Curtis Avila on 06-30-2024 Calcium [Mass/Vol] 10.1 mg/dL 7.6-11.0 [facility] Serum or plasma cholesterol in HDL measurement (mass/volume)Ordered By: Curtis Avila on 06-30-2024 Cholesterol in HDL [Mass/Vol] 40 mg/dL >40 [facility] Comment on above: National Cholesterol Education Program (NCEP) guidelines:<40 mg/dL: Low HDL-cholesterol (major risk factor for CHD)>= 60 mg/dL: High HDL-cholesterol (negative risk factor for CHD)HDL-cholesterol is affected by a number of factors, e.g. smoking, exercise, hormones, sex and age. Serum or plasma cholesterol measurement (mass/volume)Ordered By: Curtis Avila on 06-30-2024 Cholesterol [Mass/Vol] 185 mg/dL <[address] [facility] Comment on above: Cholesterol level, D esirable <200 mg/dLBorderline high cholesterol 200-239 mg/dLHigh cholesterol >=240 mg/dLRecommendations of the NCEP Adult Treatment Panel for the following risk-cutoff thresholds for the [place] population. Serum or plasma urea nitroge n measurement (mass/volume)Ordered By: Curtis Avlia on 06-30-2024 Urea nitrogen [Mass/Vol] 25 mg/dL High 4-19 [facility] Sodium levelOrdered By: Curtis Avila on 06-30-2024 Sodium [Moles/Vol] 141 mmol/L 133-145 [facility] Triglycerides measurementOrd ered By: Curtis Avila on 06-30-2024 Triglyceride [Mass/Vol] 218 mg/dL High <[address] [facility] Comment on above: The drugs N-Acetylcy steine and Metamizole may falsely depress this assay. Normal range: <150 mg/dLBorderline High: 150-199 mg/dLHigh: 200-499 mg/dLVery High: >500 mg/dL Urine albumin measurement wi th detection limit of 20 mg/L or less (mass/volume)Ordered By: Curtis Avila on 06-30-2024 Albumin DL <= 20 mg/L (U) [Mass/Vol] < 12.0 mg/L NO RANGE EST. [facility] Urine Cultureon 12-20-2023 [facility] Copy of report sent to Infection Control Printer [id number] 12/19/23 0900 KEN. Urine Culture RESULTS CALLED TO Rob MERCHANT 12/19/23 0934 Shanika Victoria. REPORT READ BACK BY . Escherichia coli [place] Count >100,000 Escherichia coli: REACTION Amikacin Islt [...] S Cefuroxime Islt ELEAZAR 16 I Normal [facility] Comment on above: Performed By: #### M 100.2200 #### [facility] [address] [place], [address] Urine Cultureon 12-18-2023 [facility] UNABLE TO CHANGE SOURCE FROM INTERFACE TO CLEAN CATCH. SEE NEW ORDER FOR RESULTS. Order Date: 12/17/23 Order Info: 630-4 - [facility]UR Comments: uti Urine Culture Normal [facility] Comment on above: Performed By: #### M 100.2200 #### [facility] [address] [place], [address] Basophil percentageOrdered B y: Curtis Avila on 11-21-2022 Chloride [Moles/Vol] 107 mmol/L 98-107 [facility] Cholesterol [Mass/Vol] 169 mg/dL <200 [facility] Comment on above: <200 mg/dL Desirable 200-240 mg/dL Borderline >240 mg/dL High Risk Glucose [Mass/Vol] 129 mg/dL 74-106 [facility] Comment on above: Fasting Glucose resu lt greater than or equal to 126 mg/dL suggests DIABETES MELLITUS per A.D.A. criteria. Potassium [Moles/Vol] 4.3 mmol/L 3.5-5.1 [facility] Sodium [Moles/Vol] 140 mmol/L 136-145 [facility] Triglyceride [Mass/Vol] 169 mg/dL <199 [facility] [...] on 11-21-2022 CO2 [Moles/Vol] 26.0 mmol/L 21.0-32.0 [facility] Urea nitrogen/Creatinine [Mass ratio] 22.8 mg/mg 10-20 [facility] No Panel InformationOrdered By: Curtis Avila on 11-21-2022 Estimated GFR (MDRD) Amer 82 mL/min >60 [facility] Comment on above: GFR Calc Estimated GFR (MDRD) Non-Af Amer 68 mL/min >60 [facility] Comment on above: Non- GFR Calc Urine Microalbumin/Creatinine Ratio 13.4 mg/g CRE <30 [facility] Serum or plasma calcium samantha urement (mass/volume)Ordered By: Curtis Avila on 11-21-2022 Calcium [Mass/Vol] 9.6 mg/dL 8.5-10.1 [facility] Serum or plasma cholesterol in HDL measurement (mass/volume)Ordered By: Curtis Avila on 11-21-2022 Cholesterol in HDL [Mass/Vol] 40 mg/dL >40 [facility] Comment on above: The drugs N-Acetylcy steine and Metamizole may falsely depress this assay. Reference Range HDL <40 mg/dL Low HDL Cholesterol HDL >or= 60 mg/dL High HDL Cholesterol Serum or plasma cholesterol in VLDL measurement (mass/volume)Ordered By: Curtis Avila on 11-21-2022 Cholesterol in VLDL [Mass/Vol] 34 mg/dL 5-40 [facility] Serum or plasma creatinine m easurement (mass/volume)Ordered By: Curtis Avila on 11-21-2022 Creatinine [Mass/Vol] 0.88 mg/dL 0.55-1.02 [facility] Comment on above: The validity of the calculated GFR & GFRAA in patients over 70 years has not been determined. Clinical correlation is essential. Serum or plasma low density lipoprotein (LDL) cholesterol measurement (mass/volume)Ordered By: Curtis Avila on 11-21-2022 Cholesterol in LDL [Mass/Vol] 95 mg/dL 0-130 [facility] Serum or plasma urea nitroge n measurement (mass/volume)Ordered By: Curtis Avila on 11-21-2022 Urea nitrogen [Mass/Vol] 20 mg/dL 7-18 [facility] Thin prep Papanicolaou smear with manual screeningOrdered By: Curtis Avila on 11-21-2022 Thin prep Papanicolaou smear with manual screening 7 5-15 [facility] Thin prep Papanicolaou smear with manual screening 7.1 mg/L NO RANGE EST. [facility] Urine creatinine measurement (mass/volume)Ordered By: Curtis Avila on 11-21-2022 Creatinine (U) [Mass/Vol] 52.80 mg/dL NO RANGE EST. [facility] Basophil percentageon 2021 Chloride [Moles/Vol] 107 mmol/L 98-107 [facility] Work Phone: Cholesterol [Mass/Vol] 174 mg/dL <200 [facility] Work Phone: Comment on above: <200 mg/dL Desirable 200-240 mg/dL Borderline >240 mg/dL High Risk Glucose [Mass/Vol] 154 mg/dL 74-106 [facility] Work Phone: Comment on above: Fasting Glucose resu lt greater than or equal to 126 mg/dL suggests DIABETES MELLITUS per A.D.A. criteria. Potassium [Moles/Vol] 4.3 mmol/L 3.5-5.1 [facility] Work Phone: Sodium [Moles/Vol] 141 mmol/L 136-145 [facility] Work Phone: Triglyceride [Mass/Vol] 217 mg/dL <[address] [facility] Work Phone: Comment on above: The drugs N-Acetylcy steine and Metamizole may falsely depress this assay.Serum Triglycerides Reference Interval Normal <150 mg/dL Borderline high 150 - 199 mg/dL High 200 - 499 mg/dL Very High > or = 500 mg/dL Laboratory - Chemistry and C hemistry - challengeon 02-27-2022 CO2 [Moles/Vol] 25.0 mmol/L 21.0-32.0 [facility] Work Phone: Urea nitrogen/Creatinine [Mass ratio] 20.3 mg/mg - [facility] Work Phone: No Panel Informationon 02-27 Estimated GFR (MDRD) Amer 86 mL/min >60 [facility] Work Phone: Comment on above: GFR Calc Estimated GFR (MDRD) Non-Af Amer 71 mL/min >60 [facility] Work Phone: Comment on above: Non- GFR Calc Urine Microalbumin/Creatinine Ratio 19.9 mg/g CRE <30 [facility] Work Phone: Serum or plasma calcium samantha urement (mass/volume)on 02-27-2022 Calcium [Mass/Vol] 9.4 mg/dL 8.5-10.1 [facility] Work Phone: Serum or plasma cholesterol in HDL measurement (mass/volume)on 02-27-2022 Cholesterol in HDL [Mass/Vol] 38 mg/dL >40 [facility] Work Phone: Comment on above: The drugs N-Acetylcy steine and Metamizole may falsely depress this assay. Reference Range HDL <40 mg/dL Low HDL Cholesterol HDL >or= 60 mg/dL High HDL Cholesterol Serum or plasma cholesterol in VLDL measurement (mass/volume)on 02-27-2022 Cholesterol in VLDL [Mass/Vol] 43 mg/dL 5-40 [facility] Work Phone: Serum or plasma creatinine m easurement (mass/volume)on 02-27-2022 Creatinine [Mass/Vol] 0.84 mg/dL 0.55-1.02 [facility] Work Phone: Comment on above: The validity of the calculated GFR & GFRAA in patients over 70 years has not been determined. Clinical correlation is essential. Serum or plasma low density lipoprotein (LDL) cholesterol measurement (mass/volume)on 02-27-2022 Cholesterol in LDL [Mass/Vol] 93 mg/dL 0-130 [facility] Work Phone: Serum or plasma urea nitroge n measurement (mass/volume)on 02-27-2022 Urea nitrogen [Mass/Vol] 17 mg/dL 7-18 [facility] Work Phone: Thin prep Papanicolaou smear with manual screeningon 02-27-2022 Thin prep Papanicolaou smear with manual screening 9 5-15 [facility] Work Phone: Thin prep Papanicolaou smear with manual screening 11.0 mg/L NO RANGE EST. [facility] Work Phone: Urine creatinine measurement (mass/volume)on 02-27-2022 Creatinine (U) [Mass/Vol] 55.40 mg/dL NO RANGE EST. [facility] Work Phone: Basophil percentageon 2021 Bilirubin [Mass/Vol] 0.70 mg/dL 0.20-1.00 [facility] Work Phone: Comment on above: For patients on eltr ombopag therapy, use of Dimension [place] TBIL is not recommended. Chloride [Moles/Vol] 107 mmol/L 98-107 [facility] Work Phone: Cholesterol [Mass/Vol] 166 mg/dL <200 [facility] Work Phone: Comment on above: <200 mg/dL Desirable 200-240 mg/dL Borderline >240 mg/dL High Risk Glucose [Mass/Vol] 160 mg/dL 74-106 [facility] Work Phone: Comment on above: Fasting Glucose resu lt greater than or equal to 126 mg/dL suggests DIABETES MELLITUS per A.D.A. criteria. Potassium [Moles/Vol] 4.2 mmol/L 3.5-5.1 [facility] Work Phone: Protein [Mass/Vol] 7.6 g/dL 6.4-8.2 [facility] Work Phone: Sodium [Moles/Vol] 137 mmol/L 136-145 [facility] Work Phone: Triglyceride [Mass/Vol] 159 mg/dL [place] [...] 08-11-2021 ALP [Catalytic activity/Vol] 133 U/L 45-117 [facility] Work Phone: ALT [Catalytic activity/Vol] 20 U/L 13-56 [facility] Work Phone: CO2 [Moles/Vol] 21.0 mmol/L 21.0-32.0 [facility] Work Phone: Globulin (S) [Mass/Vol] 3.8 g/dL 2.2-4.[address] [facility] Work Phone: Urea nitrogen/Creatinine [Mass ratio] 23.3 mg/mg 10-20 [facility] Work Phone: No Panel Informationon 08-11 Estimated GFR (MDRD) Amer 79 mL/min >60 [facility] Work Phone: Comment on above: GFR Calc Estimated GFR (MDRD) Non-Af Amer 65 mL/min >60 [facility] Work Phone: Comment on above: Non- GFR Calc Serum or plasma albumin samantha urement (mass/volume)on 08-11-2021 Albumin [Mass/Vol] 3.8 g/dL 3.2-5.0 [facility] Work Phone: Serum or plasma albumin/glob ulin mass ratioon 08-11-2021 Albumin/Globulin [Mass ratio] 1.0 {ratio} 0.9-2.4 [facility] Work Phone: Serum or plasma calcium samantha urement (mass/volume)on 08-11-2021 Calcium [Mass/Vol] 9.5 mg/dL 8.5-10.1 [facility] Work Phone: Serum or plasma cholesterol in HDL measurement (mass/volume)on 08-11-2021 Cholesterol in HDL [Mass/Vol] 41 mg/dL [facility] Work Phone: Comment on above: The drugs N-Acetylcy steine and Metamizole may falsely depress this assay. Reference Range HDL <40 mg/dL Low HDL Cholesterol HDL >or= 60 mg/dL High HDL Cholesterol Serum or plasma cholesterol in VLDL measurement (mass/volume)on 08-11-2021 Cholesterol in VLDL [Mass/Vol] 32 mg/dL 5-40 [facility] Work Phone: Serum or plasma creatinine m easurement (mass/volume)on 08-11-2021 Creatinine [Mass/Vol] 0.90 mg/dL 0.55-1.02 [facility] Work Phone: Comment on above: The validity of the calculated GFR & GFRAA in patients over 70 years has not been determined. Clinical correlation is essential. Serum or plasma low density lipoprotein (LDL) cholesterol measurement (mass/volume)on 08-11-2021 Cholesterol in LDL [Mass/Vol] 93 mg/dL 0-130 [facility] Work Phone: Serum or plasma urea nitroge n measurement (mass/volume)on 08-11-2021 Urea nitrogen [Mass/Vol] 21 mg/dL 7-18 [facility] Work Phone: Thin prep Papanicolaou smear with manual screeningon 08-11-2021 Thin prep Papanicolaou smear with manual screening 15 U/L 15-37 [facility] Work Phone: Thin prep Papanicolaou smear with manual screening 9 5-15 [facility] Work Phone: Whole blood hemoglobin A1c/t otal hemoglobin ratio (mass fraction)on 08-11-2021 HbA1c (Bld) [Mass fraction] 6.7 % 3.8-5.6 [facility] Work Phone: Comment on above: Normal < 5.7 % Predi abetic 5.7 - 6.4 % Diabetic >or= 6.5 % Please note range changes. Laboratory - Microbiology an d Antimicrobial susceptibilityon 05-01-2021 SARS-CoV-2 (COVID-19) RNA ZAIRA+probe Ql (Unsp spec) Not detected Not Detect [facility] Work Phone: Comment on above: Normal [...] lity 12-08-2022 08:00-0400 Body temperature 97.6 [degF] [facility] 12-08-2022 08:00-0400 Diastolic blood pressure 78 mm[Hg] [facility] 12-08-2022 08:00-0400 Heart rate 64 /min [facility] 12-08-2022 08:00-0400 Respiratory rate 14 /min [facility] 12-08-2022 08:00-0400 SaO2% (BldA) [Mass fraction] 99 % [facility] 12-08-2022 08:00-0400 Systolic blood pressure 145 mm[Hg] [facility] 12-08-2022 03:17-0400 Body height 147.32 cm [facility] 07-22-2021 01:35-0400 Diastolic blood pressure 76 mm[Hg] [facility] Work Phone: 07-22-2021 01:35-0400 Heart rate 68 /min [facility] Work Phone: 07-22-2021 01:35-0400 Respiratory rate 16 /min [facility] Work Phone: 07-22-2021 01:35-0400 SaO2% (BldA) [Mass fraction] 98 % [facility] Work Phone: 07-22-2021 01:35-0400 Systolic blood pressure 126 mm[Hg] [facility] Work Phone: 07-21-2021 21:47-0400 Body height 149.86 cm [facility] Work Phone: 07-21-2021 21:47-0400 Body mass index (BMI) [Ratio] 32.3 kg/m2 [facility] Work Phone: 07-21-2021 21:47-0400 Body temperature 96.8 [degF] [facility] Work Phone: 07-21-2021 21:47-0400 Body weight 72.57 kg [facility] Work Phone: Encounters Encounter Date Encounter Type Care Provider Facility Start: 10-06-2024 End: 10-06-[address] Curtis Avila MD Work Phone: -Outpatient Breast [facility] Start: 10-06-2024 End: 10-06-[address] Curtis Avila MD -Outpatient Breast Imaging Work Phone: Start: 10-06-2024 End: 10-06-2024 ambulatory Curtis Avila Facility:[facility] Start: 06-30-2024 End: 06-30-[address] Curtis Avila MD -Laboratory [facility] Start: 06-30-2024 End: 06-30-2024 ambulatory Curtis Avila Facility:[facility] Start: 12-17-2023 End: 12-17-2023 ambulatory Curtis Avila Facility:[facility] Start: 12-08-2022 End: 12-08-2022 Emergency department patient visit [facility]Emergency Department Work Phone: Start: 11-21-2022 End: 11-21-2022 ambulatory [facility] Work Phone: Start: 11-21-2022 End: 11-21-2022 Patient encounter procedure [facility] Start: 02-27-2022 End: 02-27-2022 ambulatory [facility] Work Phone: Start: 02-27-2022 End: 02-27-2022 Patient encounter procedure [facility] Start: 08-11-2021 End: 08-11-2021 Patient encounter procedure [facility] Start: 07-21-2021 End: 07-22-2021 [facility] Start: 05-01-2021 End: 05-01-2021 [facility] Date Procedure Procedure Detail Performing Clinician Start: 10-06-2024 Screening mammography D matilde Avila MD Work Phone: Plan of Treatment Date Care Activity Detail Author Patient Education [facility] Work Phone: Patient referral [facility] Work Phone: Immunizations Immunization Date Immunization Notes Care Provider Juanito ro 02-29-2016 tetanus and diphther ia toxoids, adsorbed, preservative free, for adult use (2 Lf of tetanus toxoid and 2 Lf of diphtheria toxoid) [facility] Payers Date Payer Category Payer Self-pay [id number] 2023 Unknown [id number] 2010 Medicare [id number] Private Health Insurance [facility] [id number] e Unknown [facility] [id number] a Unknown [id number] Unknown [id number] Unknown [id number] Social History Date Type Detail Facility Start: 07-21-2021 End: 12-08-2022 Tobacco smoking status NHIS Unknown if ever smoked [facility] Start: 1950 Sex Assigned At Female [facility] Start: 12-08-2022 Tobacco smoking stat us NHIS Never smoked tobacco (finding) [facility] Mental Status Date Assessment Result Facility 12-08-2022 Cognitive function Level Of Cons ciousness Awake;Alert;Appropriate;Follow s Commands [facility] Work Phone: Discharge summary 12-08-2022 Note Date & Type Note Facility 12-08-2022 Discharge summary Note Date/Time December 08, 2022 3:30am [facility] Medical Records Department [address] [place] [address] Emergency Department Summary 12/08/22 MR#: [id number] Acct: [id number] Name: JOHN LYNNE Rep #:[id number] : 1950 72 From: Manuel Plasencia PCP: [...] PO DAILY 12/08/22 [History Last Taken Unknown] axumemut-gpey-xdcr 8 mg-folic 400 mcg-K 50 mcg-lutein 300 [...] tongue involvement. IV TXA ordered. 0438: TXA jail infused, patient starting to feel some improvement. 0500: Objectively swelling continuing to improve at this time. 0800: Multiple reevaluations swelling upper lip resolved. Patient discharged outpatient follow-up with return precautions. All questions were answered. Re-evaluation: stable Disposition discussed with patient/family/significant other: Patient Case discussed with consulting clinician: N/A This note was generated with [employer] software. It may contain incorrect words, spelling, and punctuation that were not noted in checking the note before signing. Critical Care Time Critical Care Time: Yes Critical care time (excluding procedures): 30-74 minutes, Discussing w/Patient &/or Family/Head Worker, Discussing w/Consultants, Performing Direct Patient Care at [...] your Primary Care Provider. Call [facility] ([phone]) or report to the closest Emergency Room. Call 911 if necessary. 12/08/22 0807 <Electronically signed by Manuel Plasencia> Cosigner Signature (if applicable): CC: Dr. Curtis Avila MD ~ Signed [facility] Work Phone: Evaluation note Note Date & Type Note Facility Evaluation note No assessment information availa ble [facility] Work Phone: Hospital Discharge instructions Note Date & Type Note Facility Hospital Discharge instructions Additional Instructions stop your ramipril. Status post TXA in the emergency department. No improvement with allergy medications. Follow-up with your doctor. Return if worsening or recurrent symptoms. [facility] Work Phone: Reason for referral (narrative) Note Date & Type Note Facility Reason for referral (narrative) No reason for referral information available [facility] Work Phone: Chief Complaint and Reason for Visit Chief Complaint NOSEBLEED Chief Complaint facial edema Chief Complaint Admit Date SCREENING October 06, 2024 12:2 7pm Advance Directives No Advanced Directives Records Found Advance Directive Response Recorded Date/ Time Advance Directives No February 10:24pm Living Will No July 21, 2021 9 :53pm Power of Water Treatment Technician No July 21, 2021 9:53pm Advance Directive Response Recorded Date/ Time Advance Directives No February 9:24pm Living Will No July 21, 2021 8 :53pm Power of Water Treatment Technician No July 21, 2021 8:53pm Advance Directive Response Recorded Date/ Time Advance Directives No February 10:24pm Living Will No December 08, 2022 3:21am Power of Water Treatment Technician No November 3:21am Advance Directive Response Recorded [...] section and content) DATE CREATED AUTHOR 10/24/2024 [facility] FOR RECORDS PERTAINING TO PATIENTS WHO [...] BE BASED ON THE PRIMARY CLINICAL RECORDS. [employer] provides no warranty or guarantee of the accuracy or completeness of information in this document.
[2024-12-31 19:05] LABS: AST(SGOT) 30 U/L (<=31); Alanine Aminotransfer ALT/SGPT 18 U/L (<=34); Albumin, Serum 4.4 g/dL (3.4-4.8); Alkaline Phosphatase 118 U/L (35-104); Anion Gap 15 (5-15); BUN 23 mg/dL (4-19); BUN/Creat Ratio 21.9 RATIO (10-20); Calcium,Total 10.4 mg/dL (7.6-11.0); Carbon Dioxide 24.4 mmol/L (21.0-32.0); Chloride 102 mmol/L (98-108); Cholesterol 146 mg/dL (<=200); Globulin 2.9 g/dL (2.2-4.2); Glucose 105 mg/dL (70-99); Low Density Lipoprotein Calc. 81 mg/dL; Potassium 4.1 mmol/L (3.3-5.1); Triglycerides 101 mg/dL; Very Low Density Lipoprotein 20 mg/dL (5-40); cholesterol:hdl ratio screen 3.17
== END | disposition home or self-care (01) ==
LOC: MFPLAB 14:06
PROVIDERS: PCP Family Medicine; Visit Provider Family Medicine
DX: E11.9 Type 2 diabetes mellitus without complications (principal)
CPT/HCPCS: 36415; 80053; 80061